=== PATIENT | male | born 1945 | race Caucasian/White ===

== ENCOUNTER 2017-09-08 14:41 | Emergency (ER) | payer MEDICARE, MEDICAID ==
[~2017-09-08] VITALS: Ht 180.3 cm; Wt 99.8 kg
[~2017-09-08 14:41] MED LIST: ASPI-991 PO; ATOR20TA PO; CLON0.5T4 PO; CLOP75TA2 PO; DOCU-25 PO; DUTA0.5C PO; ERGO500047 PO; MECL-102 PO; MELO-270 PO; METO25TA6 PO; PIOG30TA2 PO; SITA1TAB6 PO; TAMS-12 PO; TOLT4CAP PO
[2017-09-08 15:41] VITALS: BP 142/72
== END 2017-09-08 17:00 | disposition home or self-care (01) ==
LOC: ER 14:43
DX: J02.9 Acute pharyngitis, unspecified (principal); K59.00 Constipation, unspecified; I10 Essential (primary) hypertension; J45.909 Unspecified asthma, uncomplicated; E11.9 Type 2 diabetes mellitus without complications; F17.200 Nicotine dependence, unspecified, uncomplicated; Z86.73 Personal history of transient ischemic attack (TIA), and cerebral infarction without residual deficits; Z79.82 Long term (current) use of aspirin
CPT/HCPCS: 99283; A4606; Z7610

== ENCOUNTER 2018-03-27 10:36 | Outpatient (CLI) | payer MEDICARE, MEDICAID ==
[~2018-03-27 10:36] MED LIST changes: +ASPI-1152 PO; -ASPI-991 PO; +CLOP75TA15 PO; -CLOP75TA2 PO; +DOCU-141 PO; -DOCU-25 PO; +ERGO500040 PO; -ERGO500047 PO; +MELO-105 PO; -MELO-270 PO; +PIOG30TA10 PO; -PIOG30TA2 PO
[2018-03-27] MEDS ORDERED: IOHEXOL-300 100 ML VIAL IV ONE (11:06)
[2018-03-27] MEDS ORDERED: CT SWABBABLE VALVE TRANS SET 1 EA INFUS.SET MC ONE (11:06)
[2018-03-27] MEDS ORDERED: IV NS 0.9% 250 ML IV ONE (11:06)
== END 2018-03-27 23:59 | disposition home or self-care (01) ==
LOC: CT 10:36
PROVIDERS: ATTEND Internal Medicine Hematology & Oncology
DX: I25.10 Atherosclerotic heart disease of native coronary artery without angina pectoris (principal); I71.4 Abdominal aortic aneurysm, without rupture; I70.0 Atherosclerosis of aorta; I51.7 Cardiomegaly; N28.1 Cyst of kidney, acquired
CPT/HCPCS: 74178; J7050; Q9967

== ENCOUNTER 2018-04-29 20:02 | Inpatient (IN) | payer MEDICARE, MEDICAID ==
[~2018-04-29] VITALS: Ht 180.3 cm; Wt 110.7 kg
[~2018-04-29 20:02] MED LIST changes: +CLON0.5T12 PO; -CLON0.5T4 PO
[2018-04-29 21:01] LABS: BASOPHILS % (AUTO) 0.3 % (0.0-2.0); HEMATOCRIT 39 % (39-51); HEMOGLOBIN 12.4 g/dL (13.5-17.5); LYMPHOCYTES # (AUTO) 2.2 /CMM (0.8-4.8); LYMPHOCYTES % (AUTO) 18.9 % (20.0-44.0); MEAN CORPUSCULAR HEMOGLOBIN 28 PG (26.0-33.0); MEAN CORPUSCULAR HGB CONC 32 g/dl (31.0-36.0); MEAN CORPUSCULAR VOLUME 87 fL (80-96); MONOCYTES # (AUTO) 0.8 /CMM (0.1-1.30); MONOCYTES % (AUTO) 6.6 % (2.0-12.0); NEUTROPHILS # (AUTO) 8.2 /CMM (1.8-8.9); NEUTROPHILS % (AUTO) 72.2 % (43.0-81.0); PLATELET COUNT (AUTO) 314 /CMM (150-450); RDW COEFFICIENT OF VARIATION 15.8 (11.5-15.0); RED BLOOD CELL COUNT(AUTO) 4.49 MIL/uL (4.5-6.0); WHITE BLOOD COUNT (AUTO) 11.4 K/uL (4.3-11.0)
[2018-04-29 21:03] LABS: APPEARANCE,URINE Clear (CLEAR); BILIRUBIN,URINE Negative (NEGATIVE); BLOOD, URINE Trace-intact Ery/uL (NEGATIVE); COLOR,URINE Yellow (YELLOW); KETONES,URINE Trace (NEGATIVE); LEUKOCYTE ESTERASE ,URINE Negative (NEGATIVE); NITRITE, URINE Negative (NEGATIVE); PH,URINE 5.5 (5.0-8.0); PROTEIN,URINE Negative (NEGATIVE); UGLUCOSE Negative (NEGATIVE); UROBILINOGEN,URINE 0.2 EU/dL (0.2)
[2018-04-29 21:11] LABS: CALCIUM, SERUM 8.3 mg/dL (8.5-10.1); CARBON DIOXIDE 28 mmol/L (21-32); CHLORIDE 106 mmol/L (98-107); CREATININE 1.5 mg/dL (0.6-1.3); GLUCOSE 198 mg/dL (74-106); POTASSIUM 4.7 mmol/L (3.5-5.1); SODIUM SERUM 142 mmol/L (136-145); UREA NITROGEN, BLOOD 24 mg/dL (7-18)
[2018-04-29 21:14] LABS: BACTERIA,URINE Rare /HPF (None Seen); RBC,URINE 2-3/HPF /HPF (0-2); SQUAMOUS EPITHELIAL CELL,UR Few /HPF (None Seen); WBC,URINE 0-2 /HPF (0-3)
[2018-04-29 21:15] LABS: MUCUS,URINE Few /LPF (None Seen); URINE AMORPHOUS URATE Few /HPF (None Seen)
[2018-04-29 21:17] LABS: ALANINE AMINOTRANSFERASE 20 U/L (12-78); ALBUMIN 3.5 g/dL (3.4-5.0); ALCOHOL, BLOOD 4 mg/dL (0-0); ALKALINE PHOSPHATASE 96 U/L (46-116); ASPARTATE AMINOTRANSFERASE 13 U/L (15-37); BILIRUBIN,DIRECT 0.1 mg/dL (0.0-0.2); BILIRUBIN,TOTAL 0.3 mg/dL (0.2-1.0); TOTAL PROTEIN, SERUM 7.5 g/dL (6.4-8.2)
[2018-04-29 21:46] LABS: ACETAMINOPHEN 0 ug/ml (10-30)
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
--- NOTE | 2018-04-29 23:05 | NUR ---
PT IS ASSIGNED TO GPS BED 211-B, DX: PSYCHOSIS NOS, AND ACCEPTING PSYCHIATRIST: DR KING
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
[2018-04-30] VITALS: BP 125/76
[2018-04-30] MEDS ORDERED: ACETAMINOPHEN 325 MG TABLET PO PRN (00:30)
[2018-04-30] MEDS ORDERED: MAGNESIUM HYDROXIDE 30 ML UDC PO PRN (00:30)
[2018-04-30] MEDS ORDERED: TEMAZEPAM 7.5 MG CAPSULE PO PRN (00:30)
[2018-04-30] MEDS ORDERED: MAG HYDROX/AL HYDROX/SIMETH 30 ML UDC PO PRN (00:30)
[2018-04-30] MEDS: LORAZEPAM 0.5 MG TABLET PO PRN ×2 (00:47→21:46)
--- NOTE | 2018-04-30 00:47 | NUR ---
GPS-RN PATIENT C/O FEELING ANXIOUS. VSS. ADMINISTERED ATIVAN 0.5MG PO ORDERED PER PATIENT REQUEST. WILL CONTINUE TO MONITOR Q15MIN ROUNDS FOR SAFETY AND BEHAVIOR.
[2018-04-30 07:53] LABS: CREATININE 1.1 mg/dL (0.6-1.3)
[2018-04-30 08:49] VITALS: BP 122/57
--- NOTE | 2018-04-30 09:28 | NUR ---
RN-CO: Notified Ashok Allen JAILER CHIEF to reconcile pt's home medications.
--- NOTE | 2018-04-30 11:00 | NUR ---
[id number]: NOTIFIED DR. VEE ABOUT MEDICATION RECONCILIATION NEEDS TO BE DONE.
--- NOTE | 2018-04-30 15:33 | NUR ---
Initial Discharge Plan: Pt currently resides by himself at [address] [place] [address], [address], [place] [address]; ([phone]). Per pt, he would like to return there. SW will work with the MD and the pt regarding appropriate discharge planning. SW will form a safe and proper discharge.
--- NOTE | 2018-04-30 15:39 | NUR ---
JAVIER called the pt's sister, Zarina Trejo ([phone]), and informed her of the initial discharge plan. She stated that she would like to know when the psychiatrist decides on a discharge date.
[2018-04-30 16:00] VITALS: BP 110/62
[2018-04-30] MEDS ORDERED: MECLIZINE HCL 25 MG TABLET PO PRN (18:00)
[2018-04-30] MEDS ORDERED: TOLTERODINE 2 MG CAP.SR PO SCH (18:30)
[2018-04-30] MEDS ORDERED: DEXTROSE 50%-WATER 50 ML DISP.SYRIN IV PRN (19:30)
[2018-04-30 20:00] VITALS: BP 136/75
[2018-04-30] MEDS: TAMSULOSIN 0.4 MG CAP.SR.24H PO SCH (21:45)
[2018-04-30] MEDS: DUTASTERIDE (0.5 MG) 0.5 MG CAPSULE PO SCH (21:45)
[2018-04-30] MEDS: BLOOD SUGAR DIAGNOSTIC 1 EACH STRIP IN SCH (21:46)
[2018-04-30] MEDS ORDERED: clonazePAM 0.5 MG TABLET PO SCH (22:00)
[2018-05-01 08:00] VITALS: BP 128/65
[2018-05-01] MEDS: BLOOD SUGAR DIAGNOSTIC 1 EACH STRIP IN SCH ×4 (08:07→21:26)
[2018-05-01 08:10] LABS: BASOPHILS % (AUTO) 0.3 % (0.0-2.0); HEMATOCRIT 40 % (39-51); HEMOGLOBIN 12.8 g/dL (13.5-17.5); LYMPHOCYTES # (AUTO) 2.4 /CMM (0.8-4.8); LYMPHOCYTES % (AUTO) 23.2 % (20.0-44.0); MEAN CORPUSCULAR HEMOGLOBIN 29 PG (26.0-33.0); MEAN CORPUSCULAR HGB CONC 32 g/dl (31.0-36.0); MEAN CORPUSCULAR VOLUME 89 fL (80-96); MONOCYTES # (AUTO) 0.8 /CMM (0.1-1.30); MONOCYTES % (AUTO) 7.8 % (2.0-12.0); NEUTROPHILS # (AUTO) 6.8 /CMM (1.8-8.9); NEUTROPHILS % (AUTO) 66.7 % (43.0-81.0); PLATELET COUNT (AUTO) 288 /CMM (150-450); RDW COEFFICIENT OF VARIATION 17.2 (11.5-15.0); RED BLOOD CELL COUNT(AUTO) 4.44 MIL/uL (4.5-6.0); WHITE BLOOD COUNT (AUTO) 10.2 K/uL (4.3-11.0)
--- NOTE | 2018-05-01 08:19 | NUR ---
RN NOTE: FRANCIS 238. PATIENT DENIES INSULIN. STATES ITS HIGH BECAUSE I JUST ATE. OFFERED COVERAGE 3X.
[2018-05-01] MEDS: DOCUSATE SODIUM 100 MG CAPSULE PO SCH ×2 (09:01→17:04)
[2018-05-01] MEDS: ATORVASTATIN 10 MG TABLET PO SCH (09:01)
[2018-05-01] MEDS: clonazePAM 0.5 MG TABLET PO SCH ×2 (09:01→17:04)
[2018-05-01] MEDS: CLOPIDOGREL BISULFATE 75 MG TABLET PO SCH (09:02)
[2018-05-01] MEDS: risperiDONE 1 MG TABLET PO SCH ×2 (09:02→17:04)
[2018-05-01] MEDS: METFORMIN 500 MG TABLET PO SCH ×2 (09:02→17:04)
[2018-05-01] MEDS: PIOGLITAZONE HCL 15 MG TABLET PO SCH (09:02)
[2018-05-01] MEDS: TOLTERODINE 2 MG CAP.SR PO SCH (09:02)
[2018-05-01] MEDS: MELOXICAM 7.5 MG TABLET PO SCH (09:02)
[2018-05-01] MEDS: METOPROLOL TARTRATE 25 MG TABLET PO SCH ×2 (09:03→17:04)
[2018-05-01] MEDS: ASPIRIN EC 81 MG TABLET.DR PO SCH (09:03)
[2018-05-01 09:50] LABS: CHOLESTEROL 170 mg/dL (<200); HDL CHOLESTEROL 52 mg/dL (40-60); LDL 92 mg/dL (0-99); TRIGLYCERIDES 183 mg/dL (30-150)
--- NOTE | 2018-05-01 12:30 | NUR ---
RN NOTE: BLOOD SUGAR 154. PATIENT REFUSED COVERAGE. OFFERED 3X.
[2018-05-01 16:00] VITALS: BP 119/78
[2018-05-01] MEDS: NYSTATIN TOP POWDER 15 GM BOTTLE TP SCH (17:26)
[2018-05-01 20:02] VITALS: BP 126/67
[2018-05-01] MEDS: TAMSULOSIN 0.4 MG CAP.SR.24H PO SCH (21:26)
[2018-05-01] MEDS: LORAZEPAM 0.5 MG TABLET PO PRN (21:26)
[2018-05-01] MEDS: DUTASTERIDE (0.5 MG) 0.5 MG CAPSULE PO SCH (21:26)
[2018-05-01] MEDS: INSULIN REGULAR, HUMAN 100 UNIT/ML 3 ML VIAL SQ PRN (21:27)
[2018-05-02 07:54] LABS: BASOPHILS % (AUTO) 0.3 % (0.0-2.0); EOSINOPHILS % (AUTO) 1.8 % (0.0-6.0); HEMATOCRIT 37 % (39-51); LYMPHOCYTES # (AUTO) 2.3 /CMM (0.8-4.8); LYMPHOCYTES % (AUTO) 23.4 % (20.0-44.0); MEAN CORPUSCULAR HEMOGLOBIN 29 PG (26.0-33.0); MEAN CORPUSCULAR HGB CONC 32 g/dl (31.0-36.0); MEAN CORPUSCULAR VOLUME 89 fL (80-96); NEUTROPHILS # (AUTO) 6.3 /CMM (1.8-8.9); NEUTROPHILS % (AUTO) 64.5 % (43.0-81.0); PLATELET COUNT (AUTO) 271 /CMM (150-450); RDW COEFFICIENT OF VARIATION 16.4 (11.5-15.0); RED BLOOD CELL COUNT(AUTO) 4.19 MIL/uL (4.5-6.0); WHITE BLOOD COUNT (AUTO) 9.8 K/uL (4.3-11.0)
[2018-05-02 08:00] VITALS: BP 110/58
[2018-05-02] MEDS: BLOOD SUGAR DIAGNOSTIC 1 EACH STRIP IN SCH ×4 (09:00→21:46)
[2018-05-02] MEDS: risperiDONE 1 MG TABLET PO SCH ×2 (09:01→17:32)
[2018-05-02] MEDS: CLOPIDOGREL BISULFATE 75 MG TABLET PO SCH (09:01)
[2018-05-02] MEDS: DOCUSATE SODIUM 100 MG CAPSULE PO SCH ×2 (09:01→17:35)
[2018-05-02] MEDS: METOPROLOL TARTRATE 25 MG TABLET PO SCH ×2 (09:01→17:35)
[2018-05-02] MEDS: ATORVASTATIN 10 MG TABLET PO SCH (09:02)
[2018-05-02] MEDS: MELOXICAM 7.5 MG TABLET PO SCH (09:02)
[2018-05-02] MEDS: PIOGLITAZONE HCL 15 MG TABLET PO SCH (09:02)
[2018-05-02] MEDS: ASPIRIN EC 81 MG TABLET.DR PO SCH (09:02)
[2018-05-02] MEDS: TOLTERODINE 2 MG CAP.SR PO SCH (09:02)
[2018-05-02] MEDS: METFORMIN 500 MG TABLET PO SCH ×2 (09:02→17:32)
[2018-05-02] MEDS: clonazePAM 0.5 MG TABLET PO SCH ×2 (09:02→17:32)
[2018-05-02] MEDS: NYSTATIN TOP POWDER 15 GM BOTTLE TP SCH ×2 (09:03→17:29)
--- NOTE | 2018-05-02 09:07 | NUR ---
GPS/RN ACCUCHECK WITH BLOOD SUGAR 171. PATIENT REFUSED INSULIN COVERAGE. OFFERED X 3.
[2018-05-02] MEDS: FAMOTIDINE (20 MG) 20 MG TABLET PO SCH ×2 (09:12→17:32)
--- NOTE | 2018-05-02 12:53 | NUR ---
GPS/RN ACCUCHECK DONE FOR 1200. PATIENT REFUSED INSULIN COVERAGE. OFFERED X 3.
[2018-05-02 15:57] VITALS: BP 112/72
[2018-05-02 20:00] VITALS: BP 133/72
[2018-05-02] MEDS: LORAZEPAM 0.5 MG TABLET PO PRN (21:40)
[2018-05-02] MEDS: DUTASTERIDE (0.5 MG) 0.5 MG CAPSULE PO SCH (21:40)
[2018-05-02] MEDS: TAMSULOSIN 0.4 MG CAP.SR.24H PO SCH (21:40)
[2018-05-02] MEDS: INSULIN REGULAR, HUMAN 100 UNIT/ML 3 ML VIAL SQ PRN (21:48)
--- NOTE | 2018-05-03 07:26 | NUR ---
[id number]: BLOOD SUGAR IS 113 MG/DL AND NO INSULIN REQUIRED AT THIS TIME
[2018-05-03 08:00] VITALS: BP 110/62
[2018-05-03] MEDS: clonazePAM 0.5 MG TABLET PO SCH ×2 (08:04→16:35)
[2018-05-03] MEDS: METFORMIN 500 MG TABLET PO SCH ×2 (08:04→16:35)
[2018-05-03] MEDS: FAMOTIDINE (20 MG) 20 MG TABLET PO SCH ×2 (08:05→16:35)
[2018-05-03] MEDS: DOCUSATE SODIUM 100 MG CAPSULE PO SCH ×2 (08:05→16:36)
[2018-05-03] MEDS: ASPIRIN EC 81 MG TABLET.DR PO SCH (08:05)
[2018-05-03] MEDS: MELOXICAM 7.5 MG TABLET PO SCH (08:05)
[2018-05-03] MEDS: TOLTERODINE 2 MG CAP.SR PO SCH (08:05)
[2018-05-03] MEDS: risperiDONE 1 MG TABLET PO SCH ×2 (08:05→16:35)
[2018-05-03] MEDS: PIOGLITAZONE HCL 15 MG TABLET PO SCH (08:06)
[2018-05-03] MEDS: METOPROLOL TARTRATE 25 MG TABLET PO SCH ×2 (08:06→16:36)
[2018-05-03] MEDS: CLOPIDOGREL BISULFATE 75 MG TABLET PO SCH (08:07)
[2018-05-03] MEDS: ATORVASTATIN 10 MG TABLET PO SCH (08:07)
[2018-05-03] MEDS: BLOOD SUGAR DIAGNOSTIC 1 EACH STRIP IN SCH ×4 (08:08→22:18)
[2018-05-03] MEDS: NYSTATIN TOP POWDER 15 GM BOTTLE TP SCH ×2 (08:08→16:39)
[2018-05-03 08:53] LABS: BASOPHILS % (AUTO) 0.2 % (0.0-2.0); HEMATOCRIT 37 % (39-51); LYMPHOCYTES # (AUTO) 1.8 /CMM (0.8-4.8); LYMPHOCYTES % (AUTO) 17.6 % (20.0-44.0); MEAN CORPUSCULAR HEMOGLOBIN 29 PG (26.0-33.0); MEAN CORPUSCULAR HGB CONC 33 g/dl (31.0-36.0); MEAN CORPUSCULAR VOLUME 89 fL (80-96); MONOCYTES # (AUTO) 0.8 /CMM (0.1-1.30); MONOCYTES % (AUTO) 8.4 % (2.0-12.0); NEUTROPHILS # (AUTO) 7.3 /CMM (1.8-8.9); NEUTROPHILS % (AUTO) 71.8 % (43.0-81.0); PLATELET COUNT (AUTO) 260 /CMM (150-450); RDW COEFFICIENT OF VARIATION 17.4 (11.5-15.0); RED BLOOD CELL COUNT(AUTO) 4.13 MIL/uL (4.5-6.0); WHITE BLOOD COUNT (AUTO) 10.1 K/uL (4.3-11.0)
--- NOTE | 2018-05-03 11:52 | NUR ---
[id number]: BLOOD SUGAR IS 116 MG/DL AND NO INSULIN REQUIRED AT THIS TIME
[2018-05-03 16:08] VITALS: BP 117/63
[2018-05-03] MEDS: INSULIN REGULAR, HUMAN 100 UNIT/ML 3 ML VIAL SQ PRN ×2 (18:00→22:17)
--- NOTE | 2018-05-03 18:00 | NUR ---
[id number]: BLOOD SUGAR IS 141 MG/DL AND GAVE 2 UNITS OF REGULAR INSULIN REQUIRED AT THIS TIME
[2018-05-03 19:58] VITALS: BP 95/46
[2018-05-03] MEDS: DUTASTERIDE (0.5 MG) 0.5 MG CAPSULE PO SCH (21:16)
[2018-05-03] MEDS: TAMSULOSIN 0.4 MG CAP.SR.24H PO SCH (21:16)
[2018-05-03 23:00] VITALS: BP 107/62
[2018-05-04 07:02] LABS: BASOPHILS % (AUTO) 0.2 % (0.0-2.0); EOSINOPHILS % (AUTO) 1.7 % (0.0-6.0); HEMATOCRIT 37 % (39-51); LYMPHOCYTES # (AUTO) 2.3 /CMM (0.8-4.8); MEAN CORPUSCULAR HEMOGLOBIN 29 PG (26.0-33.0); MEAN CORPUSCULAR HGB CONC 32 g/dl (31.0-36.0); MEAN CORPUSCULAR VOLUME 89 fL (80-96); MONOCYTES # (AUTO) 1.1 /CMM (0.1-1.30); MONOCYTES % (AUTO) 10.5 % (2.0-12.0); NEUTROPHILS # (AUTO) 6.5 /CMM (1.8-8.9); NEUTROPHILS % (AUTO) 64.6 % (43.0-81.0); PLATELET COUNT (AUTO) 265 /CMM (150-450); RDW COEFFICIENT OF VARIATION 16.7 (11.5-15.0); RED BLOOD CELL COUNT(AUTO) 4.18 MIL/uL (4.5-6.0); WHITE BLOOD COUNT (AUTO) 10.1 K/uL (4.3-11.0)
[2018-05-04 08:00] VITALS: BP 104/59
[2018-05-04] MEDS: DOCUSATE SODIUM 100 MG CAPSULE PO SCH ×2 (08:20→17:18)
[2018-05-04] MEDS: PIOGLITAZONE HCL 15 MG TABLET PO SCH (08:20)
[2018-05-04] MEDS: BLOOD SUGAR DIAGNOSTIC 1 EACH STRIP IN SCH ×5 (08:20→21:59)
[2018-05-04] MEDS: ASPIRIN EC 81 MG TABLET.DR PO SCH (08:20)
[2018-05-04] MEDS: clonazePAM 0.5 MG TABLET PO SCH ×2 (08:21→17:31)
[2018-05-04] MEDS: TOLTERODINE 2 MG CAP.SR PO SCH (08:21)
[2018-05-04] MEDS: FAMOTIDINE (20 MG) 20 MG TABLET PO SCH ×2 (08:22→17:18)
[2018-05-04] MEDS: ATORVASTATIN 10 MG TABLET PO SCH (08:22)
[2018-05-04] MEDS: CLOPIDOGREL BISULFATE 75 MG TABLET PO SCH (08:22)
[2018-05-04] MEDS: risperiDONE 1 MG TABLET PO SCH ×2 (08:22→17:18)
[2018-05-04] MEDS: METFORMIN 500 MG TABLET PO SCH ×2 (08:24→17:18)
[2018-05-04] MEDS: INSULIN REGULAR, HUMAN 100 UNIT/ML 3 ML VIAL SQ PRN ×3 (08:29→22:02)
[2018-05-04] MEDS: METOPROLOL TARTRATE 25 MG TABLET PO SCH ×2 (08:33→17:00)
[2018-05-04] MEDS: NYSTATIN TOP POWDER 15 GM BOTTLE TP SCH ×2 (08:34→17:26)
[2018-05-04] MEDS: MELOXICAM 7.5 MG TABLET PO SCH (08:53)
[2018-05-04] MEDS ORDERED: ERGOCALCIFEROL (VITAMIN D 2) 50,000 UNIT CAPSULE PO SCH (09:00)
--- NOTE | 2018-05-04 11:14 | NUR ---
SW spoke to the pt's sister, Zarina (cell: [phone]) and discussed that the psychiatrist has not decided on a discharge date as of yet and also discussed the pt's progress.
--- NOTE | 2018-05-04 12:30 | NUR ---
[id number]: BLOOD SUGAR IS 141 MG/DL AND GAVE 2 UNITS OF REGULAR INSULIN
[2018-05-04 16:06] VITALS: BP 118/58
--- NOTE | 2018-05-04 19:30 | NUR ---
GPS RN NOTE, RECEIVED PATIENT AWAKE AND IN BED, NO S/S OR COMPLAINTS OF PAIN AT THIS TIME. PATIENT IS DISPLAYING NO S/S OF APPARENT DISTRESS AT THIS TIME. PATIENT BREATHING IS UNLABORED WITH EQUAL RISE AND FALL CHEST. PATIENT IS ALERT AND ORIENTED X 3 ON ROOM AIR WITH A SPO2 97% . PATIENT IS SUSPICIOUS, PARANOID, DISORGANIZED, COOPERATIVE, ANXIOUS AT TIMES, AND NEEDS REDIRECTION. PATIENT DENIES SUICIDE IDEATIONS AND HOMICIDAL IDEATIONS AT THIS TIME. PATIENT EDUCATED ON THE USE OF THE CALL [place]. PATIENT BED SIDE RAILS UP X 2 FOR SAFETY, BED IS LOCKED, LOW, AND I WILL CONTINUE TO MONITOR AND MAINTAIN SAFETY WITH THE HELP OF STAFF.
[2018-05-04 19:45] VITALS: BP 145/71
[2018-05-04] MEDS: TAMSULOSIN 0.4 MG CAP.SR.24H PO SCH (21:46)
[2018-05-04] MEDS: DUTASTERIDE (0.5 MG) 0.5 MG CAPSULE PO SCH (21:46)
--- NOTE | 2018-05-04 21:59 | NUR ---
GPS RN NOTE, PERFORMED ACCU CHECK ON PATIENT WITH A BLOOD SUGAR RESULT OF 151. GAVE 2 UNITS OF REGULAR INSULIN PER SLIDING SCALE. ALSO GAVE SNACK WELL. PATIENT TOLERATED PROCEDURE AND SNACK WELL. WILL CONTINUE TO MONITOR THIS PATIENT.
[2018-05-05 07:38] LABS: BASOPHILS % (AUTO) 0.3 % (0.0-2.0); EOSINOPHILS % (AUTO) 2.2 % (0.0-6.0); HEMATOCRIT 37 % (39-51); HEMOGLOBIN 11.9 g/dL (13.5-17.5); LYMPHOCYTES # (AUTO) 2.5 /CMM (0.8-4.8); LYMPHOCYTES % (AUTO) 26.6 % (20.0-44.0); MEAN CORPUSCULAR HEMOGLOBIN 29 PG (26.0-33.0); MEAN CORPUSCULAR HGB CONC 32 g/dl (31.0-36.0); MEAN CORPUSCULAR VOLUME 90 fL (80-96); MONOCYTES % (AUTO) 10.5 % (2.0-12.0); NEUTROPHILS # (AUTO) 5.7 /CMM (1.8-8.9); NEUTROPHILS % (AUTO) 60.4 % (43.0-81.0); PLATELET COUNT (AUTO) 258 /CMM (150-450); RDW COEFFICIENT OF VARIATION 16.6 (11.5-15.0); RED BLOOD CELL COUNT(AUTO) 4.09 MIL/uL (4.5-6.0); WHITE BLOOD COUNT (AUTO) 9.4 K/uL (4.3-11.0)
--- NOTE | 2018-05-05 07:38 | NUR ---
[id number]: BLOOD SUGAR IS 122 MG/DL AND NO INSULIN COVERAGE REQUIRED AT THIS TIME
[2018-05-05] MEDS: BLOOD SUGAR DIAGNOSTIC 1 EACH STRIP IN SCH ×4 (07:59→21:14)
[2018-05-05] MEDS: METFORMIN 500 MG TABLET PO SCH ×2 (08:00→16:36)
[2018-05-05] MEDS: MELOXICAM 7.5 MG TABLET PO SCH (08:00)
[2018-05-05] MEDS: ATORVASTATIN 10 MG TABLET PO SCH (08:00)
[2018-05-05] MEDS: CLOPIDOGREL BISULFATE 75 MG TABLET PO SCH (08:00)
[2018-05-05] MEDS: DOCUSATE SODIUM 100 MG CAPSULE PO SCH ×2 (08:00→16:36)
[2018-05-05] MEDS: clonazePAM 0.5 MG TABLET PO SCH ×2 (08:00→16:36)
[2018-05-05] MEDS: PIOGLITAZONE HCL 15 MG TABLET PO SCH (08:00)
[2018-05-05] MEDS: FAMOTIDINE (20 MG) 20 MG TABLET PO SCH ×2 (08:00→16:37)
[2018-05-05] MEDS: ASPIRIN EC 81 MG TABLET.DR PO SCH (08:00)
[2018-05-05] MEDS: TOLTERODINE 2 MG CAP.SR PO SCH (08:01)
[2018-05-05] MEDS: risperiDONE 1 MG TABLET PO SCH ×2 (08:01→16:37)
[2018-05-05] MEDS: METOPROLOL TARTRATE 25 MG TABLET PO SCH ×2 (08:02→16:36)
[2018-05-05] MEDS: NYSTATIN TOP POWDER 15 GM BOTTLE TP SCH ×2 (08:03→16:37)
[2018-05-05 08:04] VITALS: BP 110/78
--- NOTE | 2018-05-05 08:29 | NUR ---
[id number]: GAVE BLOOD SUGAR IS 128 MG/DL AND GAVE 2 UNITS OF REGULAR INSULIN Addendum: 05/05/18 at 1211 by RADHA AGUERO RN WRONG TIME, IS FOR 8.6.18 AT 0509
--- NOTE | 2018-05-05 09:00 | NUR ---
[id number]: DR. PONCE CALLED WANTING TO SPEAK WITH DR. GREGORIO. PROVIDE THE PHONE NUMBER OF DR. GREGORIO REGARDING STARTING PT ON CLOZARIL.
--- NOTE | 2018-05-05 11:29 | NUR ---
JAVIER called the pt's sister, Zarina Trejo ([phone]), and informed her that the pt is going to be discharged on Friday back home on her voicemail.
--- NOTE | 2018-05-05 11:59 | NUR ---
[id number]: BLOOD SUGAR IS 121 MG/DL AND NO INSULIN REQUIRED AT THIS TIME
[2018-05-05 16:10] VITALS: BP 132/64
[2018-05-05] MEDS: INSULIN REGULAR, HUMAN 100 UNIT/ML 3 ML VIAL SQ PRN ×2 (16:55→21:52)
--- NOTE | 2018-05-05 16:55 | NUR ---
[id number]: BLOOD SUGAR IS 144 MG/DL AND GAVE 2 UNITS OF REGULAR INSULIN
[2018-05-05 19:38] VITALS: BP 145/81
[2018-05-05] MEDS: DUTASTERIDE (0.5 MG) 0.5 MG CAPSULE PO SCH (21:14)
[2018-05-05] MEDS: TAMSULOSIN 0.4 MG CAP.SR.24H PO SCH (21:14)
[2018-05-06 06:49] LABS: BASOPHILS % (AUTO) 0.3 % (0.0-2.0); EOSINOPHILS % (AUTO) 2.2 % (0.0-6.0); HEMATOCRIT 37 % (39-51); HEMOGLOBIN 11.9 g/dL (13.5-17.5); LYMPHOCYTES # (AUTO) 2.4 /CMM (0.8-4.8); LYMPHOCYTES % (AUTO) 25.7 % (20.0-44.0); MEAN CORPUSCULAR HEMOGLOBIN 29 PG (26.0-33.0); MEAN CORPUSCULAR HGB CONC 33 g/dl (31.0-36.0); MEAN CORPUSCULAR VOLUME 89 fL (80-96); MONOCYTES % (AUTO) 10.6 % (2.0-12.0); NEUTROPHILS # (AUTO) 5.8 /CMM (1.8-8.9); NEUTROPHILS % (AUTO) 61.2 % (43.0-81.0); PLATELET COUNT (AUTO) 248 /CMM (150-450); RDW COEFFICIENT OF VARIATION 17.1 (11.5-15.0); WHITE BLOOD COUNT (AUTO) 9.4 K/uL (4.3-11.0)
[2018-05-06] MEDS: BLOOD SUGAR DIAGNOSTIC 1 EACH STRIP IN SCH ×4 (07:41→22:02)
[2018-05-06 08:00] VITALS: BP 161/89
[2018-05-06] MEDS: clonazePAM 0.5 MG TABLET PO SCH ×2 (08:32→16:42)
[2018-05-06] MEDS: DOCUSATE SODIUM 100 MG CAPSULE PO SCH ×2 (08:32→16:42)
[2018-05-06] MEDS: PIOGLITAZONE HCL 15 MG TABLET PO SCH (08:32)
[2018-05-06] MEDS: MELOXICAM 7.5 MG TABLET PO SCH (08:32)
[2018-05-06] MEDS: CLOPIDOGREL BISULFATE 75 MG TABLET PO SCH (08:33)
[2018-05-06] MEDS: FAMOTIDINE (20 MG) 20 MG TABLET PO SCH ×2 (08:33→16:42)
[2018-05-06] MEDS: TOLTERODINE 2 MG CAP.SR PO SCH (08:33)
[2018-05-06] MEDS: METFORMIN 500 MG TABLET PO SCH ×2 (08:33→16:42)
[2018-05-06] MEDS: ASPIRIN EC 81 MG TABLET.DR PO SCH (08:33)
[2018-05-06] MEDS: ATORVASTATIN 10 MG TABLET PO SCH (08:33)
[2018-05-06] MEDS: METOPROLOL TARTRATE 25 MG TABLET PO SCH ×2 (08:34→16:43)
[2018-05-06] MEDS: NYSTATIN TOP POWDER 15 GM BOTTLE TP SCH ×2 (08:41→16:45)
[2018-05-06] MEDS: CLOZAPINE 25 MG TABLET PO SCH ×2 (08:46→16:42)
--- NOTE | 2018-05-06 11:12 | NUR ---
JAVIER called the pt's sister, Zarina Trejo ([phone]), and spoke to her about the pt being discharged on Friday and informed her about his current medications that he would have to continue taking.
[2018-05-06 16:00] VITALS: BP 121/54
[2018-05-06 19:58] VITALS: BP 101/52
[2018-05-06] MEDS: TAMSULOSIN 0.4 MG CAP.SR.24H PO SCH (21:20)
[2018-05-06] MEDS ORDERED: CLOZAPINE 25 MG TABLET PO SCH (22:00)
[2018-05-06] MEDS: DUTASTERIDE (0.5 MG) 0.5 MG CAPSULE PO SCH (22:02)
[2018-05-06] MEDS: INSULIN REGULAR, HUMAN 100 UNIT/ML 3 ML VIAL SQ PRN (22:03)
--- NOTE | 2018-05-07 03:09 | NUR ---
GPS RN NOTES PT. REFUSED ACCU CHECK ,EXPLAINED RISKS AND BENEFITS , ENCOURAGED, EXPLAINED RISKS AND BENEFITS STILL REFUSED , WILL CONTINUE TO ENCOURAGED TO COMPLY WITH MD REGIMEN .
[2018-05-07 07:07] LABS: BASOPHILS % (AUTO) 0.3 % (0.0-2.0); EOSINOPHILS % (AUTO) 2.7 % (0.0-6.0); HEMATOCRIT 39 % (39-51); HEMOGLOBIN 12.5 g/dL (13.5-17.5); LYMPHOCYTES # (AUTO) 2.1 /CMM (0.8-4.8); MEAN CORPUSCULAR HEMOGLOBIN 29 PG (26.0-33.0); MEAN CORPUSCULAR HGB CONC 32 g/dl (31.0-36.0); MEAN CORPUSCULAR VOLUME 90 fL (80-96); MONOCYTES # (AUTO) 0.7 /CMM (0.1-1.30); MONOCYTES % (AUTO) 7.9 % (2.0-12.0); NEUTROPHILS # (AUTO) 6.1 /CMM (1.8-8.9); NEUTROPHILS % (AUTO) 66.1 % (43.0-81.0); PLATELET COUNT (AUTO) 241 /CMM (150-450); RDW COEFFICIENT OF VARIATION 16.6 (11.5-15.0); RED BLOOD CELL COUNT(AUTO) 4.36 MIL/uL (4.5-6.0); WHITE BLOOD COUNT (AUTO) 9.2 K/uL (4.3-11.0)
[2018-05-07] MEDS: METFORMIN 500 MG TABLET PO SCH ×2 (08:09→16:37)
[2018-05-07] MEDS: DOCUSATE SODIUM 100 MG CAPSULE PO SCH ×2 (08:09→16:40)
[2018-05-07] MEDS: PIOGLITAZONE HCL 15 MG TABLET PO SCH (08:09)
[2018-05-07] MEDS: FAMOTIDINE (20 MG) 20 MG TABLET PO SCH ×2 (08:09→16:59)
[2018-05-07] MEDS: TOLTERODINE 2 MG CAP.SR PO SCH (08:09)
[2018-05-07] MEDS: ATORVASTATIN 10 MG TABLET PO SCH (08:09)
[2018-05-07] MEDS: MELOXICAM 7.5 MG TABLET PO SCH (08:09)
[2018-05-07] MEDS: CLOPIDOGREL BISULFATE 75 MG TABLET PO SCH (08:09)
[2018-05-07] MEDS: ASPIRIN EC 81 MG TABLET.DR PO SCH (08:09)
[2018-05-07] MEDS: METOPROLOL TARTRATE 25 MG TABLET PO SCH ×2 (08:10→16:38)
[2018-05-07] MEDS: NYSTATIN TOP POWDER 15 GM BOTTLE TP SCH ×2 (08:10→16:55)
[2018-05-07] MEDS: BLOOD SUGAR DIAGNOSTIC 1 EACH STRIP IN SCH ×4 (08:10→21:46)
[2018-05-07 08:23] VITALS: BP 112/61
[2018-05-07] MEDS: clonazePAM 0.5 MG TABLET PO SCH ×2 (08:37→16:37)
--- NOTE | 2018-05-07 11:13 | NUR ---
Zarina UlloaNeil ([phone]), pt's sister, called the SW and discussed transportation for the pt's discharge. She stated that she believes the pt drove himself to the hospital and so the SW is going to talk to the the pt when he wakes up.
--- NOTE | 2018-05-07 15:21 | NUR ---
SW met with the pt's primary physician, Dr. Leary ([phone]) and discussed providing the pt with home health upon discharge.
--- NOTE | 2018-05-07 15:22 | NUR ---
JAVIER called A to [facility] health ([phone]) and faxed a referral to fax: [phone].
[2018-05-07 16:00] VITALS: BP 133/72
[2018-05-07 20:00] VITALS: BP 110/56
[2018-05-07] MEDS: TAMSULOSIN 0.4 MG CAP.SR.24H PO SCH (21:46)
[2018-05-07] MEDS: DUTASTERIDE (0.5 MG) 0.5 MG CAPSULE PO SCH (21:46)
[2018-05-08 07:09] LABS: BASOPHILS % (AUTO) 0.4 % (0.0-2.0); EOSINOPHILS % (AUTO) 2.6 % (0.0-6.0); HEMATOCRIT 36 % (39-51); HEMOGLOBIN 11.9 g/dL (13.5-17.5); LYMPHOCYTES # (AUTO) 2.6 /CMM (0.8-4.8); LYMPHOCYTES % (AUTO) 27.5 % (20.0-44.0); MEAN CORPUSCULAR HEMOGLOBIN 29 PG (26.0-33.0); MEAN CORPUSCULAR HGB CONC 33 g/dl (31.0-36.0); MEAN CORPUSCULAR VOLUME 89 fL (80-96); MONOCYTES % (AUTO) 10.6 % (2.0-12.0); NEUTROPHILS # (AUTO) 5.5 /CMM (1.8-8.9); NEUTROPHILS % (AUTO) 58.9 % (43.0-81.0); PLATELET COUNT (AUTO) 267 /CMM (150-450); RDW COEFFICIENT OF VARIATION 16.7 (11.5-15.0); WHITE BLOOD COUNT (AUTO) 9.3 K/uL (4.3-11.0)
[2018-05-08] MEDS: BLOOD SUGAR DIAGNOSTIC 1 EACH STRIP IN SCH ×2 (07:35→12:05)
[2018-05-08 08:00] VITALS: BP 107/59
[2018-05-08] MEDS: PIOGLITAZONE HCL 15 MG TABLET PO SCH (08:59)
[2018-05-08] MEDS: clonazePAM 0.5 MG TABLET PO SCH (08:59)
[2018-05-08] MEDS: ASPIRIN EC 81 MG TABLET.DR PO SCH (09:00)
[2018-05-08] MEDS: MELOXICAM 7.5 MG TABLET PO SCH (09:00)
[2018-05-08] MEDS: FAMOTIDINE (20 MG) 20 MG TABLET PO SCH (09:00)
[2018-05-08] MEDS: TOLTERODINE 2 MG CAP.SR PO SCH (09:00)
[2018-05-08] MEDS: DOCUSATE SODIUM 100 MG CAPSULE PO SCH (09:00)
[2018-05-08] MEDS: CLOPIDOGREL BISULFATE 75 MG TABLET PO SCH (09:00)
[2018-05-08 09:01] VITALS: BP 107/59
[2018-05-08] MEDS: METOPROLOL TARTRATE 25 MG TABLET PO SCH (09:01)
[2018-05-08] MEDS: NYSTATIN TOP POWDER 15 GM BOTTLE TP SCH (09:01)
[2018-05-08] MEDS: METFORMIN 500 MG TABLET PO SCH (09:01)
--- NOTE | 2018-05-08 09:26 | NUR ---
DR. KING GAVE AN ORDER TO D/C HOLD AND D/C HOME AND TO FOLLOW UP WITH PSYCH AND MEDICAL DOCTORS.
[2018-05-08] MEDS: ATORVASTATIN 10 MG TABLET PO SCH (09:58)
--- NOTE | 2018-05-08 13:56 | NUR ---
Discharge Note: Pt was discharged home to [address] [place] [address], [address], [place] [address]; ([phone]). Pt was advised to be transported via taxi for $10 but once the taxi arrived the pt refused the transport and drove his own vehicle home. Pts sister, Zarina Trejo ([phone]), is aware of this discharge and has agreed. Pt was set up with A to [facility] and has an appointment with his primary care physician, Dr. Leary, on 06/12/18 at 2pm. Upon discharge, the pt appeared to in a euthymic mood and had a calm affect. Pt denied both suicidal and homicidal ideation as well as both auditory and visual hallucinations. Pt will be under the care of his psychiatrist, Dr. Austin, located at [address] [place] [address]; and his play reader, Dr. Leary, located at [address] [place] [address] [address] [address]; .
--- NOTE | 2018-05-08 14:00 | NUR ---
RN NOTE: PATIENT LEFT UNIT AT 1400. ESCORTED DOWN BY ERICA. PATIENT GOING HOME VIA TAXI. PATIENT DENIES SI/HI DURING DISCHARGE. MEDICALLY STABLE. [facility] DISCHARGE HOLD, D/C ORDER, AND GAVE PRESCRIPTION. FIRE SAFETY MANAGER MADE AWARE AND GAVE PRESCRIPTIONS. EXIT CARE PAPERS SIGNED. BELONGINGS AND VALUABLES GAVE TO PATIENT AND SIGNED FOR. PATIENT REFUSED SKIN ASSESSMENT.
--- NOTE | 2018-05-08 14:09 | NUR ---
RN NOTE: ACCORDING TO ERICA BAUTISTA, PATIENT DID NOT TAKE THE TAXI HOME. PATIENT WAS ADVISED TO TAKE THE TAXI HOME, BUT PATIENT REFUSED AND WANTED TO DRIVE HOME. CAR WAS PARKED IN THE PARKING LOT.
--- NOTE | 2018-05-08 14:14 | NUR ---
JAVIER called the pt's sister, Zarina Trejo ([phone]), and informed her that the pt refused the transportation that was set up for him and he decided to take his own vehicle.
== END 2018-05-08 14:00 | disposition home or self-care (01) | DRG 885 ==
LOC: ER 20:03 → GPS 23:42
PROVIDERS: ADMIT Psychiatry & Neurology Psychiatry; ATTEND Nurse Practitioner Acute Care
DX: F20.0 Paranoid schizophrenia (principal); N17.0 Acute kidney failure with tubular necrosis; F29 Unspecified psychosis not due to a substance or known physiological condition; F41.9 Anxiety disorder, unspecified; D63.8 Anemia in other chronic diseases classified elsewhere; D72.829 Elevated white blood cell count, unspecified; E11.9 Type 2 diabetes mellitus without complications; E78.5 Hyperlipidemia, unspecified; Z79.84 Long term (current) use of oral hypoglycemic drugs; Z85.51 Personal history of malignant neoplasm of bladder; Z86.73 Personal history of transient ischemic attack (TIA), and cerebral infarction without residual deficits; I10 Essential (primary) hypertension; J45.909 Unspecified asthma, uncomplicated; M19.90 Unspecified osteoarthritis, unspecified site; R21 Rash and other nonspecific skin eruption
CPT/HCPCS: 36415; 80048-TC; 80061-TC; 80076-TC; 80305; 81000-TC; 82565-TC; 82962-TC; 85025-TC; 87081-TC; A4606; G0480; J1815; J8597; Z7610

== ENCOUNTER 2022-01-08 14:51 | Emergency (ER) | payer MEDICARE, OTHER ==
[~2022-01-08] VITALS: Ht 175.3 cm; Wt 106.6 kg
[~2022-01-08 14:51] MED LIST changes: -ASPI-1152 PO; +ASPI-1420 PO; -CLON0.5T12 PO; +CLON0.5T4 PO; -MECL-102 PO; +MECL-159 PO
--- NOTE | 2022-01-08 15:07 | NUR ---
PATIENT CAME FROM HOME, HE STS HE LIVES ALONE WITH CAREGIVER. C/O DIFFICULTY SWALLOWING PILLS LATELY. WITH THE PATIENT THERE WAS A BUSINESS CARD,FOR [facility], [place] CHANA HICKEY (DINKEY OPERATOR) [phone].
[2022-01-08] MEDS ORDERED: AZIT200S48 PO (16:42)
[2022-01-08] MEDS ORDERED: POLY17PO4 PO (16:42)
--- NOTE | 2022-01-08 17:13 | NUR ---
Patient discharged to home in stable condition. Written and verbal after care instructions given. Patient verbalizes understanding of instruction.
[2022-01-08 17:15] VITALS: BP 173/90
== END 2022-01-08 17:15 | disposition home or self-care (01) ==
LOC: ER 14:54
DX: J18.9 Pneumonia, unspecified organism (principal); R13.10 Dysphagia, unspecified; R05.9 Cough, unspecified; I10 Essential (primary) hypertension; E11.9 Type 2 diabetes mellitus without complications; J45.909 Unspecified asthma, uncomplicated; F17.200 Nicotine dependence, unspecified, uncomplicated; Z98.890 Other specified postprocedural states; Z86.73 Personal history of transient ischemic attack (TIA), and cerebral infarction without residual deficits; Z60.2 Problems related to living alone; Z79.899 Other long term (current) drug therapy; Z79.82 Long term (current) use of aspirin
CPT/HCPCS: 70490-TC; 71045-TC

== ENCOUNTER 2022-08-12 15:28 | Inpatient (IN) | payer MEDICARE, OTHER ==
[~2022-08-12] VITALS: Ht 175.3 cm; Wt 111.1 kg
[~2022-08-12 15:28] MED LIST changes: +AZIT200S48 PO; +POLY17PO4 PO
--- NOTE | 2022-08-12 15:37 | NUR ---
TONI SANTANA C/O FEELING DIZZY AND WEAKNESS TO BILAT KNEES CAUSING HIM TO FALL. PT STATED THAT HE WAS GOING TO THE BANK AND WLAKING UPSTAIR AND HE FELT WEAK AND HAD A GLF, DENGIES ANITA, STATED HE DID HIT HIS HEAD AND HAS A HEADACHE. PT STATED THAT HE HAS BEEN FEELING WEAK THAT PAST COUPLE DAYS AND HAS BEEN HAVING GLF PRIOR TO TODAY. PT IS A&OX3. ATTACHED TO MONITOR. AWAITING MD ORDERS.
--- NOTE | 2022-08-12 16:21 | NUR ---
IV ESTABLISHED R AC 20G. LABS DRAWN AND COLLECTED.
--- NOTE | 2022-08-12 16:31 | NUR ---
COVID TEST COLLECTED AND SENT
--- NOTE | 2022-08-12 16:34 | NUR ---
PT TAKEN TO CT VIA [facility]
--- NOTE | 2022-08-12 16:42 | NUR ---
PT RETURNED FROM [facility] VIA [facility]
[2022-08-12 16:43] LABS: BASOPHILS % (AUTO) 0.1 % (0.0-2.0); EOSINOPHILS % (AUTO) 0.3 % (0.0-6.0); HEMATOCRIT 37 % (39-51); HEMOGLOBIN 12.2 g/dL (13.5-17.5); LYMPHOCYTES # (AUTO) 0.7 K/uL (0.8-4.8); LYMPHOCYTES % (AUTO) 7.3 % (20.0-44.0); MEAN CORPUSCULAR HGB CONC 33 g/dl (31.0-36.0); MEAN CORPUSCULAR VOLUME 95 fL (80-96); MONOCYTES # (AUTO) 1.3 K/uL (0.1-1.30); MONOCYTES % (AUTO) 12.6 % (2.0-12.0); NEUTROPHILS % (AUTO) 79.7 % (43.0-81.0); PLATELET COUNT (AUTO) 223 K/uL (150-450)
[2022-08-12] MEDS ORDERED: [UNRECOGNIZED DRUG - REMARK] (16:53)
[2022-08-12 17:27] LABS: ALANINE AMINOTRANSFERASE 25 U/L (12-78); ALBUMIN 3.3 g/dL (3.4-5.0); ALKALINE PHOSPHATASE 90 U/L (46-116); ASPARTATE AMINOTRANSFERASE 15 U/L (15-37); BILIRUBIN,DIRECT 0.1 mg/dL (0.0-0.2); BILIRUBIN,TOTAL 0.4 mg/dL (0.2-1.0); CALCIUM, SERUM 8.5 mg/dL (8.5-10.1); CARBON DIOXIDE 29 mmol/L (21-32); CHLORIDE 104 mmol/L (98-107); CREATININE 1.5 mg/dL (0.6-1.3); GLUCOSE 151 mg/dL (74-106); POTASSIUM 4.4 mmol/L (3.5-5.1); SODIUM SERUM 138 mmol/L (136-145); TOTAL PROTEIN, SERUM 6.9 g/dL (6.4-8.2); UREA NITROGEN, BLOOD 19 mg/dL (7-18)
--- NOTE | 2022-08-12 18:02 | NUR ---
MOVE SHEET SUBMITTED.
--- NOTE | 2022-08-12 18:53 | NUR ---
URINE COLLECTED AND SENT
[2022-08-12 19:20] LABS: BILIRUBIN,URINE NEGATIVE (NEGATIVE); COLOR,URINE YELLOW (YELLOW); LEUKOCYTE ESTERASE ,URINE NEGATIVE (NEGATIVE); NITRITE, URINE NEGATIVE (NEGATIVE); PROTEIN,URINE NEGATIVE (NEGATIVE); UGLUCOSE NEGATIVE (NEGATIVE); UROBILINOGEN,URINE 0.2 EU/dL (0.2)
--- NOTE | 2022-08-12 19:46 | NUR ---
RECEIVED REPORT FROM AMANDA HOWE . PATIENT CAME WITH CC OF WEAKNESS OF ITALIA LEG THAT CAUSE GLF. PATIENT IS SRI LANKAN SPEAKING. AAO X2-3. WITH IV CANNULA G20 ON RIGHT AC. PATIENT IS ATTACHED TO MONITOR. VITALS CHECKED.
--- NOTE | 2022-08-12 19:46 | NUR ---
Note [email or web address] in EDM - 08/12/22 at 1953 by MICHAEL RECEIVED REPORT FROM AMANDA HOWE . PATIENT CAME WITH CC OF WEAKNESS OF ITALIA LEG THAT CAUSE GLF. PATIENT IS LAO SPEAKING. AAO X2-3. WITH IV CANNULA G20 ON RIGHT AC. PATIENT IS ATTACHED TO MONITOR. VITALS CHECKED.
[2022-08-12 20:21] LABS: WBC,URINE 0-2 /HPF (0-3)
[2022-08-12 20:22] LABS: BACTERIA,URINE None seen /HPF (None Seen); SQUAMOUS EPITHELIAL CELL,UR 0-2 /HPF (None Seen)
--- NOTE | 2022-08-12 21:49 | NUR ---
SEEN BY TRAMAINE STRAUSS AT BEDSIDE
--- NOTE | 2022-08-12 22:00 | NUR ---
REPORT GIVEN TO AMANDA KULKARNI
[2022-08-12 22:30] VITALS: BP 138/73
--- NOTE | 2022-08-12 22:30 | NUR ---
PAINT STOCKMANNISSAN SALES CONSULTANT NOTE RECEIVED REPORT FROM ER NURSE TWILA. PT IS BEING ADMITTED IN ROOM 324-2 FOR SYNCOPE. PT IS A/O X 2-3, EAST TIMORESE SPEAKING, ABLE TO MAKE NEEDS KNOWN. PT IS ORIENTED TO ROOM. PT IS C/O MID BACK PAIN WITH PAIN MEDS IN PLACE. PT HAS SMALL WOUND TO LEFT ELBOW, BRUISES TO LEFT HIP, AND LEFT KNEE, AND REDNESS TO LEFT ANKLE. BUT PT IS REFUSING PICTURES TO BE TAKEN. IV ACCESS TO RIGHT AC 20G, PATENT, AND INTACT. SAFETY MEASURES IN PLACE: CALL LIGHT WITHIN REACH, BED LOCKED, IN LOW POSITION, SR UP X2. WILL CONTINUE TO MONITOR PT.
[2022-08-12] MEDS ORDERED: Z GUARD REMEDY 4 OZ OINT TP PRN (23:30)
[2022-08-12] MEDS ORDERED: ACETAMINOPHEN 325 MG TABLET PO PRN (23:30)
[2022-08-12] MEDS ORDERED: IV NS 0.9% 1,000 ML IV PRN (23:30)
[2022-08-12] MEDS ORDERED: ONDANSETRON HCL/PF 4 MG/2 ML VIAL IVP PRN (23:30)
[2022-08-12] MEDS ORDERED: DEXTROSE 50%-WATER 50 ML DISP.SYRIN IV PRN (23:30)
--- NOTE | 2022-08-13 01:00 | NUR ---
NURSING ASSISTANTS TEACHER NOTE PT HAS MID BACK PAIN, WITH PAIN LEVEL AT 7/10. PAIN MED ADMINISTERED TO PT.
[2022-08-13 06:00] VITALS: BP 120/70
--- NOTE | 2022-08-13 07:15 | NUR ---
HAND STAMPER CLOSING NOTE LEFT PT AWAKE, IN BED. PT IS A/O X 3, PORTUGUESE SPEAKING, ABLE TO MAKE NEEDS KNOWN. NO C/O PAIN, OR DISCOMFORT AT THIS TIME. NO ACUTE DISTRESS NOTED. PT ON TELE MONITOR, SR. ALL NEEDS ATTENDED. SAFETY MEASURES IN PLACE: CALL LIGHT WITHIN REACH, BED LOCKED, IN LOW POSITION, SR UP X2. WILL ENDORSE CARE TO AM SHIFT NURSE FOR SARAH.
--- NOTE | 2022-08-13 07:25 | NUR ---
PEANUT PICKER OPENING NOTE RECEIVED PT AWAKE, IN BED. PT IS A/O X 3, CYMRO SPEAKING AND ICELANDIC , ABLE TO MAKE NEEDS KNOWN. NO C/O PAIN, OR DISCOMFORT AT THIS TIME. NO ACUTE DISTRESS NOTED. PT ON TELE MONITOR, SR. HR OF 88 , ALL NEEDS ATTENDED. SAFETY MEASURES IN PLACE: CALL LIGHT WITHIN REACH, BED LOCKED, IN LOW POSITION, SR UP X2. WILL CONTINUE TO MONITOR
[2022-08-13] MEDS: BLOOD SUGAR DIAGNOSTIC 1 EACH STRIP IN SCH ×4 (07:46→22:02)
--- NOTE | 2022-08-13 07:50 | NUR ---
DIALYSIS PATIENT CARE TECHNICIAN NOTE MED NORCO 5-325 MG WAS ADMINISTERED TO PT AT 0100 D/T BACK PAIN, BUT MED NOT SHOWING IN COMPUTER. PHARMACY, AND NURSE TOBACCO WAREHOUSE AGENT INFORMED ABOUT IT.
[2022-08-13 07:52] LABS: CARBON DIOXIDE 32 mmol/L (21-32); CHLORIDE 106 mmol/L (98-107); CREATININE 1.1 mg/dL (0.6-1.3); GLUCOSE 119 mg/dL (74-106); MAGNESIUM 2.2 mg/dL (1.8-2.4); PHOSPHORUS 3.1 mg/dL (2.5-4.9); POTASSIUM 3.6 mmol/L (3.5-5.1); SODIUM SERUM 141 mmol/L (136-145); UREA NITROGEN, BLOOD 15 mg/dL (7-18)
[2022-08-13 08:00] VITALS: BP 130/67
[2022-08-13] MEDS: PANTOPRAZOLE 40 MG TABLET.DR PO SCH (08:11)
[2022-08-13 08:13] LABS: IRON, SERUM 30 ug/dl (50-175); TOTAL IRON BINDING CAPACITY 268 ug/dl (250-450)
[2022-08-13 08:17] LABS: BASOPHILS % (AUTO) 0.3 % (0.0-2.0); EOSINOPHILS % (AUTO) 0.2 % (0.0-6.0); HEMATOCRIT 35 % (39-51); LYMPHOCYTES # (AUTO) 1.6 K/uL (0.8-4.8); LYMPHOCYTES % (AUTO) 20.4 % (20.0-44.0); MEAN CORPUSCULAR HGB CONC 34 g/dl (31.0-36.0); MEAN CORPUSCULAR VOLUME 93 fL (80-96); MONOCYTES # (AUTO) 1.3 K/uL (0.1-1.30); MONOCYTES % (AUTO) 17.1 % (2.0-12.0); NEUTROPHILS # (AUTO) 4.8 K/uL (1.8-8.9); PLATELET COUNT (AUTO) 229 K/uL (150-450); RED BLOOD CELL COUNT(AUTO) 3.81 MIL/uL (4.5-6.0); WHITE BLOOD COUNT (AUTO) 7.7 K/uL (4.3-11.0)
[2022-08-13 08:31] LABS: CHOLESTEROL 125 mg/dL (<200); HDL CHOLESTEROL 68 mg/dL (40-60); LDL 50 mg/dL (0-99); THYROID STIMULATING HORMONE 0.393 uIU/mL (0.358-3.74); TRIGLYCERIDES 72 mg/dL (30-150)
[2022-08-13] MEDS: HEPARIN SODIUM, PORCINE 5000 UNITS/1 ML VIAL SQ SCH ×2 (09:34→21:53)
[2022-08-13] MEDS: HYDROCODONE/APAP 5/325MG TABLET PO PRN ×2 (09:42→16:51)
[2022-08-13] MEDS: IPRATROPIUM NEB FS 0.5 MG/2.5 ML AMPUL.NEB NEB SCH ×3 (10:46→20:33)
[2022-08-13 11:55] LABS: ABG BASE EXCESS 3.3 mmol/L; ABG OXYGEN SATURATION 90.2 % (92.0-98.5); ABG PCO2 52.8 mmHg (35.0-45.0); ABG PH 7.367 (7.350-7.450); AaDO2 26.5 mmHg; COHb 0.8 % (0.5-1.5); MetHb 0.1 % (0.0-1.5); O2Hb 89.4 % (94.0-97.0); SITE, ABG Right Brachial; VENT MODE, BG room air
[2022-08-13 12:00] VITALS: BP 144/76
[2022-08-13 12:36] LABS: BAND % (MANUAL) 4 % (0.0-5.0); LYMPHOCYTES % (MANUAL) 19 % (16-48); MONOCYTES % (MANUAL) 13 % (0-11.0); NEUTROPHILS % (MANUAL) 64 (42-76)
[2022-08-13] MEDS: INSULIN REGULAR, HUMAN 100 UNIT/ML 3 ML VIAL SQ PRN ×2 (13:09→18:19)
[2022-08-13 16:00] VITALS: BP 147/78
--- NOTE | 2022-08-13 19:08 | NUR ---
MOTION PICTURE PROJECTIONIST APPRENTICE CLOSING NOTE PT AWAKE, IN BED. PT IS A/O X 3, NAMIBIAN SPEAKING AND PASHTO , ABLE TO MAKE NEEDS KNOWN. C/O PAIN, OR DISCOMFORT AND NORCO GIVEN ORDERED , CT OF THE CHEST DONE AND CAROTID ARTERY US WITH NEGATIVE RESULT , NO ACUTE DISTRESS NOTED. PT ON TELE MONITOR, SR. HR OF 88 , IV ACCESS ON THE RAC WITH NS @75 ML PER HOUR , ALL NEEDS ATTENDED. SAFETY MEASURES IN PLACE: CALL LIGHT WITHIN REACH, BED LOCKED, IN LOW POSITION, SR UP X2. WILL CONTINUE TO MONITOR
--- NOTE | 2022-08-13 19:30 | NUR ---
PT RECEIVED AWAKE, RESTING IN BED. PT IS A/O X 3, COMORAN SPEAKING AND ABLE TO SPEAK BRITISH [place] ISLANDER , ABLE TO MAKE NEEDS KNOWN. NO C/O PAIN, OR DISCOMFORT . PT ON TELE MONITOR. IV ACCESS ON THE RAC G#20 INFUSING NS @75 ML/HR, URINAL AT BEDSIDE. SAFETY MEASURES IN PLACE. HOB SLIGHTLY ELEVATED, BED LOCKED IN LOWEST POSITION, SIDE RAILS UP X2, BED ALARM ON, CALL LIGHT WITHIN REACH. WILL CONTINUE PLAN OF CARE.
[2022-08-13 20:00] VITALS: BP 145/84
[2022-08-14] VITALS: BP 156/90
[2022-08-14] MEDS: IPRATROPIUM NEB FS 0.5 MG/2.5 ML AMPUL.NEB NEB SCH ×7 (00:19→23:30)
[2022-08-14 04:00] VITALS: BP 99/75
--- NOTE | 2022-08-14 06:15 | NUR ---
PT ASLEEP, RESTING IN BED. EASILY AWAKEN BY CALLING HIS NAME. PT IS A/O X 3, PERUVIAN SPEAKING AND ABLE TO SPEAK DANISH , ABLE TO MAKE NEEDS KNOWN. NO C/O PAIN, OR DISCOMFORT . PT ON TELE MONITOR. IV ACCESS ON RAC G#20 INFUSING NS @75 ML/HR, URINAL AT BEDSIDE. DUE MEDS GIVEN. NEEDS ATTENDED. SAFETY MEASURES IMAINTAINED. HOB SLIGHTLY ELEVATED, BED LOCKED IN LOWEST POSITION, SIDE RAILS UP X2, BED ALARM ON, CALL LIGHT WITHIN REACH. WILL ENDORSE TO NEXT NURSE ON DUTY FOR CONTINUITY OF CARE.
[2022-08-14 07:06] LABS: CARBON DIOXIDE 30 mmol/L (21-32); CHLORIDE 105 mmol/L (98-107); CREATININE 1.1 mg/dL (0.6-1.3); GLUCOSE 153 mg/dL (74-106); POTASSIUM 3.8 mmol/L (3.5-5.1); SODIUM SERUM 142 mmol/L (136-145); UREA NITROGEN, BLOOD 14 mg/dL (7-18)
[2022-08-14] MEDS: PANTOPRAZOLE 40 MG TABLET.DR PO SCH (07:30)
[2022-08-14 07:37] LABS: BASOPHILS % (AUTO) 0.3 % (0.0-2.0); EOSINOPHILS % (AUTO) 0.4 % (0.0-6.0); HEMATOCRIT 38 % (39-51); HEMOGLOBIN 12.6 g/dL (13.5-17.5); LYMPHOCYTES # (AUTO) 1.4 K/uL (0.8-4.8); LYMPHOCYTES % (AUTO) 15.8 % (20.0-44.0); MEAN CORPUSCULAR HGB CONC 33 g/dl (31.0-36.0); MEAN CORPUSCULAR VOLUME 94 fL (80-96); MONOCYTES % (AUTO) 11.7 % (2.0-12.0); NEUTROPHILS # (AUTO) 6.2 K/uL (1.8-8.9); NEUTROPHILS % (AUTO) 71.8 % (43.0-81.0); PLATELET COUNT (AUTO) 220 K/uL (150-450); RED BLOOD CELL COUNT(AUTO) 4.07 MIL/uL (4.5-6.0); WHITE BLOOD COUNT (AUTO) 8.6 K/uL (4.3-11.0)
[2022-08-14 08:00] VITALS: BP 141/70
[2022-08-14] MEDS: BLOOD SUGAR DIAGNOSTIC 1 EACH STRIP IN SCH ×4 (11:00→21:44)
[2022-08-14 12:00] VITALS: BP 145/71
[2022-08-14] MEDS: INSULIN REGULAR, HUMAN 100 UNIT/ML 3 ML VIAL SQ PRN ×2 (12:45→21:49)
[2022-08-14 16:00] VITALS: BP_SYST 152; BP_SYST 155; BP_DIAS 68; BP_DIAS 76
--- NOTE | 2022-08-14 19:28 | NUR ---
RN CLOSING NOTE PATIENT RECEIVED IN BED AN AWAKE. A/OX3-4 AND ABLE TO VERBALIZE NEEDS. IV ACCESS TO RAC REMAINS INTACT AND PATENT. SALINE LOCKED AT THIS TIME. PATIENT OBSERVED AMBULATING WITH PT ON SHIFT. TOLERATED THERAPY WELL. CONTINENT AND AMBULATING TO BATHROOM WITH ASSISTANCE OF CANE. PATIENT NO LONGER ON TELEMETRY STATUS; STATUS CHANGED TO MED-SURG PER DOCTOR ORDER. BS CHECKS STABLE ON SHIFT @ 212 (4UNITS COVERAGE GIVEN) & 107. SAFETY MEASURES INTACT WITH BED LOW AND LOCKED. CALL LIGHT WITHIN REACH. WILL CONT TO MONITOR
--- NOTE | 2022-08-14 19:30 | NUR ---
MS RN OPENING NOTE RECEIVED PT AWAKE IN BED. A/O X3-4 AND ABLE TO MAKE NEEDS KNOWN. PT STABLE ON ROOM AIR. NO SOB OR S/S OF RESPIRATORY DISTRESS. BREATHING EVEN AND UNLABORED. IV ACCESS RAC 20G, INTACT AND PATENT. SAFETY PRECAUTIONS IN PLACE. BED IN LOWEST LOCKED POSITION, HOB ELEVATED, SIDE RAILS UP X2, AND CALL LIGHT AND TABLE WITHIN REACH. ALL NEEDS MET AT THIS TIME.
[2022-08-14 20:00] VITALS: BP_SYST 144; BP_SYST 148; BP_DIAS 59; BP_DIAS 75
[2022-08-14] MEDS ORDERED: QUETIAPINE FUMARATE 25 MG TABLET PO SCH (22:00)
[2022-08-15] MEDS: IPRATROPIUM NEB FS 0.5 MG/2.5 ML AMPUL.NEB NEB SCH ×4 (00:10→12:17)
[2022-08-15] MEDS: BLOOD SUGAR DIAGNOSTIC 1 EACH STRIP IN SCH (06:30)
--- NOTE | 2022-08-15 06:31 | NUR ---
MS RN CLOSING NOTE PT RESTING IN BED, VERBALLY RESPONSIVE. A/O X3-4 AND ABLE TO MAKE NEEDS KNOWN. PT STABLE ON ROOM AIR. NO SOB OR S/S OF RESPIRATORY DISTRESS. BREATHING EVEN AND UNLABORED. IV ACCESS RAC 20G, INTACT AND PATENT. ALL DUE MEDS GIVEN ORDERED. SAFETY PRECAUTIONS IN PLACE AT ALL TIMES. BED IN LOWEST LOCKED POSITION, HOB ELEVATED, SIDE RAILS UP X2, AND CALL LIGHT AND TABLE WITHIN REACH. ALL NEEDS MET AT THIS TIME AND WILL ENDORSE TO ONCOMING NURSE FOR SARAH.
[2022-08-15] MEDS: PANTOPRAZOLE 40 MG TABLET.DR PO SCH (07:30)
[2022-08-15] MEDS ORDERED: Quetiapine Fumarate PO (08:34)
[2022-08-15] MEDS ORDERED: QUET25TA PO (08:34)
--- NOTE | 2022-08-15 12:25 | NUR ---
SS note: SW met with pt. at bedside for safe discharge planning. The pt. is a 77 year old Micronesian male who was admitted for Syncope, JAMES. Per EMR, the pt. has a syncopal episode. Pt. was seen and cleared by psychiatrist Dr. Wild as pt. presents with some paranoid delusions. Psychiatrist cleared pt. for discharge back home [[address] [facility] [address] [facility] [address]]. The pt. is currently alert & oriented x 4 and makes good eye contact. The pt. appears well-groomed withe euthymic mood & affect. The pt. was compliant with interview and carried a coherent and appropriate conversation. The Pt. is primarily Micronesian speaking and understand/speaks some Sri Lankan. Pt.'s family friend, Mauricio [phone] was at bedside to provide transportation to home. Mauricio also assisted with translating. SW provided pt. with mental health resources as Dr. Wild recommended pt. follow up with outpatient psychiatrist. Pt. stated that he already sees an outpatient psychiatrist, Anne Austin MD [[address], [place] [address]; ]. Noted. Pt. accepted mental health resources and requested clothing. SW provided appropriate clothing and notified nurse. Mental Health /Counseling Services Astrid Smyth [address] [place] [address] Services: Outpatient therapy for children, teens, young adults, adults, older adults, and families; Psychiatric services, medication support [facility] (Behavioral Health) [facility] Walk-in [place] [address] Operation Hours: MON - FRI 8:00 a.m. - 5:00 p.m. Walk In Hours: MON - FRI 8:00 a.m. - 5:00 p.m. Mental Health Services: [facility]able Clinical Services (FCCS) (Medication Support, Mental Health Services, Peer Support NOTE: [facility] Center 21/04 helpline: [address] [place] [address] (Specializes in in-depth psychotherapy for emotional distress: anxiety, depression, interpersonal conflicts, life transitions, childhood abuse) [facility] [place] (Behavioral Health) [address], 2nd [place] [address] Main Number: Adult Full Service Partnership (AFSP): Contact Community [facility] Center [address] [place], [place] [address] (Assist with solving problem marital difficulties, separation & divorce, aging parents, & grief, chronic & terminal illness) [facility] [address] [place] [address] (Deal with loss & grief, anxiety, marital difficulties) Homebound/Mental Health Services [address], [address] [place] [address] (Provide in-home mental services to people who are incapable of leaving their homes) [facility] Senior Service[facility] [address] [place] [address] [facility] [address] [place] [address] PSYCHIATRIC OUTPATIENT SERVICES [facility] Partial Hospitalization and Intensive Outpatient Program (Managed Care and [place] Only) [address] [facility] [address]; [phone] [facility] Partial Hospitalization and Outpatient Program [address] [place] [address]; [phone] [facility] [place] [id number] [place], [place] [phone] [facility] Partial Hospitalization and Outpatient [id number] [place], [place] ; [phone] ;[phone] [facility] PSYCHIATRIC TREATMENT [facility] Children[facility] Crisis stabilization, medication support mental health services [address] [facility] [id number] Appointment needed [facility] [address], [place] [address] [place] Crisis and Hotline Telephone Numbers: 24-Hour service unless stated [place] Mental Health/Crisis Line........[phone] Suicide Prevention Center (24 Hours).......[phone] Suicide Prevention Crisis Center.......[phone] (24 Hours) Alcoholics Anonymous (24 Hours)..........[phone] National Crisis Hotlines: Alcohol and Drug Helpline - Provides referrals to local facilities where adolescents and adults can seek help. Brief intervention. SHAYE Helpline [facility] [place] [facility] 5-473-217-SIGE National Youth Crisis Hotline [facility] Provides free information on specific disorders, referral directory to mental health providers, national directory of local mental health associations (M-F, 9-5 EST) [facility] [place] of Mental Health Information Line: Provides information and literature on mental illness by disorder-for professionals and general public. [facility] Substance Abuse Self-helpline ([facility]) Contact number . Call the hotline and the machine operator hay stacker will screen and link individual to an appropriate program. Must have Medi-lina or be Medi-lina eligible.
--- NOTE | 2022-08-15 12:52 | NUR ---
PIPELINE WELDER NOTE PATIENT DISCHARGED FROM UNIT @ 1240 VIA WHEELCHAIR, HOWEVER ABLE TO AMBULATE TO PRIVATE VEHICLE. ESCORTED BY FAMILY MEMBER BOLIVAR. ALL BELONGINGS AND VALUABLES GIVEN TO PATIENT UPON LEAVE. INVENTORY LIST SIGNED.
== END 2022-08-15 14:00 | disposition home or self-care (01) | DRG 640 ==
LOC: ER 15:30 → TELE 20:50 → MED 08-14 08:27
PROVIDERS: ADMIT Nurse Practitioner Family; ATTEND Internal Medicine
DX: E86.0 Dehydration (principal); N17.0 Acute kidney failure with tubular necrosis; J98.11 Atelectasis; E66.2 Morbid (severe) obesity with alveolar hypoventilation; F20.0 Paranoid schizophrenia; J20.9 Acute bronchitis, unspecified; Z86.73 Personal history of transient ischemic attack (TIA), and cerebral infarction without residual deficits; R29.6 Repeated falls; I25.10 Atherosclerotic heart disease of native coronary artery without angina pectoris; E11.9 Type 2 diabetes mellitus without complications; G47.33 Obstructive sleep apnea (adult) (pediatric); G90.8 Other disorders of autonomic nervous system; F41.9 Anxiety disorder, unspecified; D64.9 Anemia, unspecified; Z68.36 Body mass index [BMI] 36.0-36.9, adult; Z20.822 Contact with and (suspected) exposure to COVID-19; R26.89 Other abnormalities of gait and mobility; Z87.891 Personal history of nicotine dependence
CPT/HCPCS: 36415; 36600; 70450-TC; 71045-TC; 71250-TC; 80048-TC; 80061-TC; 80076-TC; 81001; 82728-TC; 82803-TC; 82962-TC; 83540-TC; 83735-TC; 84100-TC; 84443-TC; 84484-TC; 85025-TC; 85730-TC; 87081-TC; 93307-TC; 93880-TC; 94799-TC; 97110-TC; 97112-TC; 97530-TC; C9803; G0378; J1644; J1815; J7030

== ENCOUNTER 2023-04-09 16:36 | Inpatient (IN) | payer OTHER ==
[~2023-04-09] VITALS: Ht 172.7 cm; Wt 99.8 kg
[~2023-04-09 16:36] MED LIST changes: -ASPI-1420 PO; -ATOR20TA PO; -AZIT200S48 PO; -CLON0.5T4 PO; -CLOP75TA15 PO; -DOCU-141 PO; -DUTA0.5C PO; -ERGO500040 PO; -MECL-159 PO; -MELO-105 PO; -METO25TA6 PO; -PIOG30TA10 PO; -POLY17PO4 PO; +QUET25TA PO; +Quetiapine Fumarate PO; -SITA1TAB6 PO; -TAMS-12 PO; -TOLT4CAP PO; +[UNRECOGNIZED DRUG - REMARK]
[2023-04-09] MEDS ORDERED: IV NS 0.9% 1,000 ML BAG IV ONE ×3 (17:00→20:30)
[2023-04-09 17:52] LABS: BASOPHILS % (AUTO) 0.1 % (0.0-2.0); EOSINOPHILS % (AUTO) 0.5 % (0.0-6.0); HEMATOCRIT 40 % (39-51); HEMOGLOBIN 12.9 g/dL (13.5-17.5); LYMPHOCYTES % (AUTO) 4.9 % (20.0-44.0); MEAN CORPUSCULAR HGB CONC 32 g/dl (31.0-36.0); MEAN CORPUSCULAR VOLUME 96 fL (80-96); MONOCYTES # (AUTO) 1.6 K/uL (0.1-1.30); NEUTROPHILS # (AUTO) 17.1 K/uL (1.8-8.9); NEUTROPHILS % (AUTO) 86.5 % (43.0-81.0); PLATELET COUNT (AUTO) 291 K/uL (150-450); RED BLOOD CELL COUNT(AUTO) 4.15 MIL/uL (4.5-6.0); WHITE BLOOD COUNT (AUTO) 19.8 K/uL (4.3-11.0)
--- NOTE | 2023-04-09 17:55 | NUR ---
pt in bed, blood collected and sent
--- NOTE | 2023-04-09 17:55 | NUR ---
pending urine sample waiting for pt to urinate
[2023-04-09 18:22] LABS: LYMPHOCYTES % (MANUAL) 4 % (16-48); MONOCYTES % (MANUAL) 7 % (0-11.0); MYELOCYTES % 1 % (0-0); NEUTROPHILS % (MANUAL) 88 (42-76)
[2023-04-09 18:42] LABS: ALANINE AMINOTRANSFERASE 17 U/L (12-78); ALBUMIN 3.4 g/dL (3.4-5.0); ALKALINE PHOSPHATASE 76 U/L (46-116); ASPARTATE AMINOTRANSFERASE 20 U/L (15-37); BILIRUBIN,TOTAL 0.5 mg/dL (0.2-1.0); CALCIUM, SERUM 9.4 mg/dL (8.5-10.1); CARBON DIOXIDE 19 mmol/L (21-32); CHLORIDE 103 mmol/L (98-107); CREATININE 1.8 mg/dL (0.6-1.3); GLUCOSE 165 mg/dL (74-106); POTASSIUM 4.5 mmol/L (3.5-5.1); SODIUM SERUM 143 mmol/L (136-145); UREA NITROGEN, BLOOD 37 mg/dL (7-18)
[2023-04-09 18:51] LABS: BILIRUBIN,URINE NEGATIVE (NEGATIVE); COLOR,URINE YELLOW (YELLOW); LEUKOCYTE ESTERASE ,URINE NEGATIVE (NEGATIVE); NITRITE, URINE NEGATIVE (NEGATIVE); PROTEIN,URINE NEGATIVE (NEGATIVE); UGLUCOSE NEGATIVE (NEGATIVE); UROBILINOGEN,URINE 0.2 EU/dL (0.2)
[2023-04-09] MEDS ORDERED: CEFTRIAXONE 1GM BAG (ER ONLY) 50 ML IV ONE ×2 (18:58→19:00)
[2023-04-09 19:02] LABS: BACTERIA,URINE None seen /HPF (None Seen); SQUAMOUS EPITHELIAL CELL,UR None Seen /HPF (None Seen); WBC,URINE 0-2 /HPF (0-3)
--- NOTE | 2023-04-09 19:59 | NUR ---
PATIENT'S BELONGINGS LIST DONE.
--- NOTE | 2023-04-09 21:45 | NUR ---
REPORT GIVEN TO AMANDA UNDERWOOD FOR SARAH
--- NOTE | 2023-04-09 22:12 | NUR ---
PT TRANSPORTED TO UNIT ON [place] WITH EMT AND RN AT BEDSIDE.
--- NOTE | 2023-04-09 22:30 | NUR ---
RN NOTES ADMITTED A 78 Y/O MALE PATIENT VIA GURNEY FROM ER WITH DX OF SEPSIS. PATIENT IS A/O X3 ABLE TO MAKE NEEDS KNOWN, ON RNASAL CANULA AT 4LPM SATING 95% NO SOB NOT ON ANY RESPIRATORY DISTRESS BREATHING EVEN AND UNLABORED. VITAL SIGNS TAKEN AND RECORDED AFEBRILE. SAFELY TRANSFER TO BED. COMPLETE BODY ASSESSMENT DONE, PICTURE TAKEN AND FILED, ALL BELONGINGS ACCOUNTED. HOB ELEVATED. CALL LIGHT WITHIN REACH. BED ALAM IN PLACE. WILL CLOSELY MONITOR THE PATIENT
[2023-04-09 22:33] VITALS: BP 155/83; TEMP 98.8; O2SAT 98
[2023-04-09] MEDS ORDERED: MAG HYDROX/AL HYDROX/SIMETH 30 ML UDC PO PRN (23:00)
[2023-04-09] MEDS ORDERED: ONDANSETRON HCL/PF 4 MG/2 ML VIAL IVP PRN (23:00)
[2023-04-09] MEDS ORDERED: ACETAMINOPHEN 325 MG TABLET PO PRN (23:00)
[2023-04-09] MEDS ORDERED: Z GUARD REMEDY 4 OZ OINT TP PRN (23:00)
[2023-04-09] MEDS ORDERED: ZOLPIDEM TARTRATE 5 MG TABLET PO PRN (23:00)
[2023-04-09] MEDS: IV NS 0.9% 1,000 ML IV PRN (23:31)
[2023-04-10] VITALS: BP 155/83; TEMP 98.8; O2SAT 98
[2023-04-10 04:00] VITALS: BP 149/90; TEMP 98.4; O2SAT 98
--- NOTE | 2023-04-10 06:27 | NUR ---
RN NOTES NO NOTED CHANGES IN PATIENT CONDITION AT THIS TIME; PATIENT VITALS STABLE, NO SIGNS OF ACUTE RESPIRATORY DISTRESS. AM PATIENT CARE RENDERED.WILL CONTINUE TO MONITOR AND REASSESS FOR ANY CHANGES THROUGHOUT THE SHIFT.
[2023-04-10 06:32] LABS: HEMATOCRIT 37 % (39-51); HEMOGLOBIN 12.2 g/dL (13.5-17.5); LYMPHOCYTES # (AUTO) 1.8 K/uL (0.8-4.8); LYMPHOCYTES % (AUTO) 12.3 % (20.0-44.0); MEAN CORPUSCULAR HGB CONC 33 g/dl (31.0-36.0); MEAN CORPUSCULAR VOLUME 94 fL (80-96); MONOCYTES # (AUTO) 1.4 K/uL (0.1-1.30); MONOCYTES % (AUTO) 9.4 % (2.0-12.0); NEUTROPHILS # (AUTO) 11.3 K/uL (1.8-8.9); NEUTROPHILS % (AUTO) 77.3 % (43.0-81.0); PLATELET COUNT (AUTO) 248 K/uL (150-450); RED BLOOD CELL COUNT(AUTO) 3.95 MIL/uL (4.5-6.0); WHITE BLOOD COUNT (AUTO) 14.7 K/uL (4.3-11.0)
[2023-04-10 07:32] LABS: CALCIUM, SERUM 8.5 mg/dL (8.5-10.1); CREATININE 1.1 mg/dL (0.6-1.3); PHOSPHORUS 3.7 mg/dL (2.5-4.9); POTASSIUM 4.1 mmol/L (3.5-5.1)
--- NOTE | 2023-04-10 07:51 | NUR ---
marisa rn note received patient on bed alert, oriented x3, new heplock on the rt ac with good blood return, pt on 2 liters nasal cannula, no sb noted at this time, patient has IV fluids NS 75 ml/hr, pt complains of constipation, called mihai RNNP ok to give milk of magnesia at this time, safely measured implemented, bed alarm, breakfast was taken on his own, call light on, will continue to monitor closely.
[2023-04-10] MEDS: MAGNESIUM HYDROXIDE 30 ML UDC PO PRN (07:55)
[2023-04-10 08:00] VITALS: BP 138/77; TEMP 97.8; O2SAT 98
--- NOTE | 2023-04-10 10:30 | NUR ---
marisa rn note pt eval done, able to use walker to ambulate with min assistance
[2023-04-10 12:00] VITALS: BP 137/74; TEMP 99; O2SAT 94
--- NOTE | 2023-04-10 12:51 | NUR ---
marisa rn note rounds made all needs attended , cont on ivf as ordered .will cont to monitor
--- NOTE | 2023-04-10 15:00 | NUR ---
marisa rn note called renu sister, left a message about home Meds will f\u mihai cabrales garnishment specialist and pharmacist xavier notified
[2023-04-10 16:00] VITALS: BP 157/86; TEMP 100; O2SAT 95
[2023-04-10] MEDS ORDERED: DEXTROSE 50%-WATER 50 ML DISP.SYRIN IV PRN (16:00)
--- NOTE | 2023-04-10 16:50 | NUR ---
marisa rn note t 100.0 Tylenol po mg given will monitor
[2023-04-10] MEDS: IV NS 0.9% 1,000 ML IV PRN (16:52)
[2023-04-10] MEDS: INSULIN REGULAR, HUMAN 100 UNIT/ML 3 ML VIAL SQ PRN ×2 (17:40→22:17)
[2023-04-10] MEDS: BLOOD SUGAR DIAGNOSTIC 1 EACH STRIP IN SCH ×2 (17:41→22:17)
--- NOTE | 2023-04-10 17:41 | NUR ---
satellite television installer not e called to dnp mihai notified that bp 157/86 no new order given at this time
--- NOTE | 2023-04-10 17:45 | NUR ---
TIE PULLER NOTE MID LINE NURSE AT BEDSIDE, PLACED MIDLINE ON LT UPPER ARM ORDERED ,CONT ON IVF ORDERED ATE 100% DINNER SELF
--- NOTE | 2023-04-10 18:43 | NUR ---
VU RN NOTE CALLED SISTER SRI ABOUT HOME MEDS, GAVE SOME BUT DONT REMEMBER ALL, WILL CALL TOMORROW ALSO CALLED TO HIS PHARMACY STATED DONT HAVE MUCH MIRALAX AND AZYTHROMAX AND SEROQUEL BUT NEVER HAVE IT , CALLED HIS DR MCKEON BUT SHE HANG UP ,WILL F\U TOMORROW WITH HIS SISTER, PATIENT ALERT ORIENTED, ON 2L NC NO SOB NOTED AT THIS TIME, ON TELE MONITOR ST 106 , MID LINE ON LT UPPER ARM AND HL ON RT AC INTACT AND FLUSHED WELL , ON IVF ORDERED, BED IN LOWEST AND LOCKED POSITION , WILL CONT TO MONITOR
[2023-04-10] MEDS ORDERED: CEFTRIAXONE 1 G in IV D5W 50 ML IV SCH (19:00)
--- NOTE | 2023-04-10 19:20 | NUR ---
VU RN NOTE PER DNP KB OK TO ORDER CLONAZEPAM 0.5 MG PO QHS WILL F\U ENDORSED NEXT SHIFT ROSARIO RN
--- NOTE | 2023-04-10 19:30 | NUR ---
RN NOTES RECEIVED REPORT FROM MORNING RN. PATIENT IN BED A/O X3 WITH PERIODS. ON 2L NC SATING 97% NO SOB NO DISTRESS BREATHING EVEN AND UNLABORED. WITH PHIL MIDLINE LINE RUNNING NS @ 75 ML/HR. ALL SAFETY MEASURES IN PLACE. HOB ELEVATED. CALL LIGHT WITHIN REACH. WILL CLOSELY MONITOR THE PATIENT
[2023-04-10 20:00] VITALS: BP 126/68; TEMP 98.8; O2SAT 99
[2023-04-10] MEDS: clonazePAM 0.5 MG TABLET PO SCH (22:17)
[2023-04-11] VITALS: BP 126/68; TEMP 98.8; O2SAT 99
[2023-04-11 04:00] VITALS: BP 152/90; TEMP 98.2; O2SAT 99
[2023-04-11 05:50] LABS: CALCIUM, SERUM 8.5 mg/dL (8.5-10.1); CREATININE 1.1 mg/dL (0.6-1.3); POTASSIUM 4.1 mmol/L (3.5-5.1)
[2023-04-11] MEDS: BLOOD SUGAR DIAGNOSTIC 1 EACH STRIP IN SCH ×4 (07:52→21:22)
[2023-04-11 08:00] VITALS: BP 150/77; TEMP 98; O2SAT 99
--- NOTE | 2023-04-11 09:00 | NUR ---
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
--- NOTE | 2023-04-11 09:17 | NUR ---
VU RN OPENING NOTES RECEIVED REPORT FROM SYSTEMS ANALYSIS MANAGER RN, PATIENT AWAKE, PATIENT IN BED A/O X3, ON 2L NC TOLERATING WELL, NO SOB NO DISTRESS BREATHING EVEN AND UNLABORED. WITH PHIL MIDLINE LINE RUNNING NS @ 75 ML/HR. ON TELE MONITOR SR HR 70'S. ALL SAFETY MEASURES IN PLACE. HOB ELEVATED. CALL LIGHT WITHIN REACH. PLAN OF CARE CONTINUE.
[2023-04-11] MEDS: IV NS 0.9% 1,000 ML IV PRN (09:21)
[2023-04-11 11:19] LABS: BASOPHILS # (AUTO) 0.1 K/uL (0.0-0.2); BASOPHILS % (AUTO) 0.7 % (0.0-2.0); EOSINOPHILS % (AUTO) 1.9 % (0.0-6.0); HEMATOCRIT 39 % (39-51); HEMOGLOBIN 12.7 g/dL (13.5-17.5); LYMPHOCYTES # (AUTO) 1.9 K/uL (0.8-4.8); LYMPHOCYTES % (AUTO) 12.7 % (20.0-44.0); MEAN CORPUSCULAR HGB CONC 33 g/dl (31.0-36.0); MEAN CORPUSCULAR VOLUME 95 fL (80-96); MONOCYTES # (AUTO) 1.4 K/uL (0.1-1.30); MONOCYTES % (AUTO) 9.7 % (2.0-12.0); NEUTROPHILS # (AUTO) 11.1 K/uL (1.8-8.9); PLATELET COUNT (AUTO) 236 K/uL (150-450); RED BLOOD CELL COUNT(AUTO) 4.09 MIL/uL (4.5-6.0); WHITE BLOOD COUNT (AUTO) 14.8 K/uL (4.3-11.0)
[2023-04-11] MEDS ORDERED: CLOP75TA15 PO (11:26)
[2023-04-11] MEDS ORDERED: FOLI0.4T6 PO (11:26)
[2023-04-11] MEDS ORDERED: OMEP1CAP24 PO (11:26)
[2023-04-11] MEDS ORDERED: GLIM1TAB18 PO (11:26)
[2023-04-11] MEDS ORDERED: BISA5TAB10 PO (11:26)
[2023-04-11] MEDS ORDERED: CETI-90 PO (11:26)
[2023-04-11] MEDS ORDERED: TAMS-12 PO (11:26)
[2023-04-11] MEDS ORDERED: CLOZ100T32 PO (11:26)
[2023-04-11] MEDS ORDERED: OLOP2.5D6 OP (11:26)
[2023-04-11] MEDS ORDERED: FERR325T23 PO (11:26)
[2023-04-11] MEDS ORDERED: SITA1TAB6 PO (11:26)
[2023-04-11] MEDS ORDERED: IBUP-1957 PO (11:26)
[2023-04-11] MEDS ORDERED: DIFLORASONE TP (11:26)
[2023-04-11] MEDS ORDERED: CHOL500062 PO (11:26)
[2023-04-11] MEDS ORDERED: DUTA0.5C PO (11:26)
[2023-04-11] MEDS ORDERED: MAGN400T8 PO (11:26)
[2023-04-11] MEDS ORDERED: ATOR20TA PO (11:26)
[2023-04-11] MEDS ORDERED: CELE200C PO (11:26)
[2023-04-11] MEDS ORDERED: MECL-159 PO (11:26)
[2023-04-11] MEDS ORDERED: CICL60SU2 TP (11:26)
[2023-04-11] MEDS ORDERED: DICL1PAT11 TP (11:26)
[2023-04-11] MEDS ORDERED: TOLT4CAP PO (11:26)
[2023-04-11] MEDS ORDERED: FLUTICASONE PROP BNOSTRILS (11:26)
[2023-04-11] MEDS ORDERED: ONDA-97 PO (11:26)
[2023-04-11] MEDS ORDERED: CYCL30DR EACHEYE (11:26)
[2023-04-11] MEDS ORDERED: ACET-2605 PO (11:26)
[2023-04-11] MEDS ORDERED: ASPI-1169 PO (11:26)
[2023-04-11 12:00] VITALS: BP 155/65; TEMP 98.5; O2SAT 100
[2023-04-11] MEDS ORDERED: MECLIZINE HCL 25 MG TABLET PO PRN (14:00)
[2023-04-11] MEDS ORDERED: ACETAMINOPHEN ES 500 MG TABLET PO PRN (14:00)
[2023-04-11] MEDS ORDERED: HOME MED MISCELLANEOUS XX SCH ×3 (14:00)
[2023-04-11] MEDS ORDERED: CELECOXIB 100 MG CAPSULE PO PRN (14:00)
[2023-04-11] MEDS: ASPIRIN 81 MG TAB.CHEW PO SCH (14:14)
[2023-04-11] MEDS: cetrizine 10 MG TABLET PO SCH (14:14)
[2023-04-11] MEDS: FOLIC ACID 1 MG TABLET PO SCH (14:14)
[2023-04-11] MEDS: CLOPIDOGREL BISULFATE 75 MG TABLET PO SCH (14:14)
[2023-04-11] MEDS: MAGNESIUM HYDROXIDE 30 ML UDC PO PRN (14:20)
[2023-04-11 16:00] VITALS: BP 155/68; TEMP 98.3; O2SAT 98
[2023-04-11] MEDS: METFORMIN 500 MG TABLET PO SCH (16:24)
[2023-04-11] MEDS: FERROUS SULFATE (325 MG) 325 MG/TAB TABLET PO SCH (16:24)
[2023-04-11] MEDS: TAMSULOSIN 0.4 MG CAP.SR.24H PO SCH (17:08)
[2023-04-11] MEDS: INSULIN REGULAR, HUMAN 100 UNIT/ML 3 ML VIAL SQ PRN ×2 (17:18→21:25)
--- NOTE | 2023-04-11 19:15 | NUR ---
RN NOTE Report received from Krystal Rai RN, patient in bed, AO x 3, in no acute distress, saturation at 98% on room air, SR on the monitor HR is 67. IV line at RAC and PHIL midline patent and flushing well, saline locked. Patient ambulates with walker and assistance. Safety measures in place, bed is locked and at lowest position, HOB elevated, call light within reach of patient. Will monitor and reassess.
[2023-04-11 20:00] VITALS: BP 132/69; TEMP 97.8; O2SAT 98
[2023-04-11] MEDS: GLIMEPIRIDE 1 MG TABLET PO SCH (21:26)
[2023-04-11] MEDS: CLOZAPINE 100 MG TABLET PO SCH (21:26)
[2023-04-11] MEDS: ATORVASTATIN 10 MG TABLET PO SCH (21:26)
[2023-04-11] MEDS: clonazePAM 0.5 MG TABLET PO SCH (21:26)
[2023-04-12] VITALS: BP 126/81; TEMP 97.4; O2SAT 95
[2023-04-12 04:00] VITALS: BP 105/78; TEMP 98.3; O2SAT 95
--- NOTE | 2023-04-12 07:28 | NUR ---
VU RN OPENING NOTES RECEIVED REPORT FROM PANELBOARD OPERATOR RN, PATIENT AWAKE, PATIENT IN BED A/O X3, ON 2L NC TOLERATING WELL, NO SOB NO DISTRESS BREATHING EVEN AND UNLABORED. WITH PHIL MIDLINE ON TELE MONITOR SR HR 78'S. ALL SAFETY MEASURES IN PLACE. HOB ELEVATED. CALL LIGHT WITHIN REACH. WILL CONTINUE TO FALLOW UP
[2023-04-12] MEDS: BLOOD SUGAR DIAGNOSTIC 1 EACH STRIP IN SCH ×4 (07:39→21:10)
[2023-04-12 08:00] VITALS: BP 138/70; TEMP 99.5; O2SAT 95
[2023-04-12] MEDS: cetrizine 10 MG TABLET PO SCH (08:18)
[2023-04-12] MEDS: LINAGLIPTIN 5 MG TABLET PO SCH (08:18)
[2023-04-12] MEDS: METFORMIN 500 MG TABLET PO SCH ×2 (08:18→16:02)
[2023-04-12] MEDS: FERROUS SULFATE (325 MG) 325 MG/TAB TABLET PO SCH ×3 (08:18→16:02)
[2023-04-12] MEDS: ASPIRIN 81 MG TAB.CHEW PO SCH (08:18)
[2023-04-12] MEDS: DUTASTERIDE (0.5 MG) 0.5 MG CAPSULE PO SCH (08:19)
[2023-04-12] MEDS: CLOPIDOGREL BISULFATE 75 MG TABLET PO SCH (08:19)
[2023-04-12] MEDS: FOLIC ACID 1 MG TABLET PO SCH (08:19)
[2023-04-12] MEDS: CHOLECALCIFEROL 1,000 UNIT TABLET (VIT D3) PO SCH (08:19)
[2023-04-12] MEDS: MAGNESIUM OXIDE 400 MG TABLET PO SCH (08:20)
[2023-04-12] MEDS: FLUTICASONE PROPIONATE 16 GM BOTTLE NS SCH (08:31)
[2023-04-12] MEDS ORDERED: TAMSULOSIN 0.4 MG CAP.SR.24H PO SCH (09:00)
[2023-04-12] MEDS: INSULIN REGULAR, HUMAN 100 UNIT/ML 3 ML VIAL SQ PRN ×2 (11:33→21:23)
[2023-04-12 12:00] VITALS: BP 129/76; TEMP 98.8; O2SAT 95
[2023-04-12 16:00] VITALS: BP 120/73; TEMP 98.6; O2SAT 96
[2023-04-12] MEDS: TAMSULOSIN 0.4 MG CAP.SR.24H PO SCH (17:07)
--- NOTE | 2023-04-12 18:41 | NUR ---
DIE FILER CLOSING NOTES PATIENT AWAKE, PATIENT IN BED A/O X3, ON ROOM AIR, TOLERATING WELL, NO SOB NO DISTRESS BREATHING EVEN AND UNLABORED. WITH PHIL MIDLINE SL. ON TELE MONITOR SR HR 70'S. PATIENT ABLE TO AMBULATE WITH A WALKER. ALL SAFETY MEASURES IN PLACE. HOB ELEVATED. CALL LIGHT WITHIN REACH. WILL ENDORSE TO NIGHT NURSE FOR SARAH.
--- NOTE | 2023-04-12 19:15 | NUR ---
GENERAL SURGERY PHYSICIAN ASSISTANT OPENING NOTES RECEIVED PATIENT AWAKE, RESTING IN BED A/O X3. NO S/S OF ACUTE DISTRESS NOTED. ON RA, TOLERATING WELL. NO SOB, BREATHING EVEN AND UNLABORED. NOTED WITH PHIL MIDLINE-SALINE LOCKED-INTACT, PATENT AND FLUSHING WELL. ALSO NOTED WITH RIGHT ANTECUBITAL IV ACCESS-SL. PATIENT DENIES ANY PAIN AT THIS TIME. SAFETY MEASURES IN PLACED. BED IN LOW AND LOCKED POSITION. CALL LIGHT AND TABLE WITHIN EASY REACH. SIDE RAILS UP X3. WILL CONTINUE TO MONITOR
[2023-04-12 20:00] VITALS: BP 112/56; TEMP 99.5; O2SAT 95
[2023-04-12] MEDS: ATORVASTATIN 10 MG TABLET PO SCH (21:21)
[2023-04-12] MEDS: CLOZAPINE 100 MG TABLET PO SCH (21:21)
[2023-04-12] MEDS: clonazePAM 0.5 MG TABLET PO SCH (21:21)
[2023-04-12] MEDS: GLIMEPIRIDE 1 MG TABLET PO SCH (21:21)
[2023-04-13] VITALS (7 sets, daily range): BP systolic 105–136; BP diastolic 61–87; TEMP 97.5–99.6; O2SAT 93–98
--- NOTE | 2023-04-13 06:30 | NUR ---
EMISSIONS TESTING AND REPAIR TECHNICIAN closing note Pt resting in bed, in stable condition, 0 s/s of pain, 0 s/s of sob, all due meds given per MD orders tolerated well, all basic needs met and anticipated, will continue to monitor
--- NOTE | 2023-04-13 07:05 | NUR ---
MS RN OPENING NOTES RECEIVED PATIENT AWAKE IN BED A/O X3. NO SIGNS OF ACUTE DISTRESS NOTED. ON ROOM AIR, TOLERATING WELL. NO SOB, BREATHING EVEN AND UNLABORED. NOTED WITH PHIL MIDLINE-SALINE LOCKED-INTACT, PATENT AND FLUSHING WELL. ALSO NOTED WITH RIGHT ANTECUBITAL IV ACCESS-SL. PATIENT DENIES ANY PAIN AT THIS TIME. SAFETY MEASURES IN PLACED. BED IN LOW AND LOCKED POSITION. CALL LIGHT AND TABLE WITHIN EASY REACH. SIDE RAILS UP X3. WILL CONTINUE WITH PLAN OF CARE.
[2023-04-13] MEDS: BLOOD SUGAR DIAGNOSTIC 1 EACH STRIP IN SCH ×4 (07:39→21:40)
[2023-04-13] MEDS: INSULIN REGULAR, HUMAN 100 UNIT/ML 3 ML VIAL SQ PRN ×4 (07:40→21:41)
[2023-04-13] MEDS: LINAGLIPTIN 5 MG TABLET PO SCH (08:18)
[2023-04-13] MEDS: CHOLECALCIFEROL 1,000 UNIT TABLET (VIT D3) PO SCH (08:19)
[2023-04-13] MEDS: DUTASTERIDE (0.5 MG) 0.5 MG CAPSULE PO SCH (08:20)
[2023-04-13] MEDS: FERROUS SULFATE (325 MG) 325 MG/TAB TABLET PO SCH ×3 (08:20→16:52)
[2023-04-13] MEDS: FOLIC ACID 1 MG TABLET PO SCH (08:20)
[2023-04-13] MEDS: CLOPIDOGREL BISULFATE 75 MG TABLET PO SCH (08:20)
[2023-04-13] MEDS: METFORMIN 500 MG TABLET PO SCH ×2 (08:20→16:52)
[2023-04-13] MEDS: cetrizine 10 MG TABLET PO SCH (08:20)
[2023-04-13] MEDS: MAGNESIUM OXIDE 400 MG TABLET PO SCH (08:20)
[2023-04-13] MEDS: ASPIRIN 81 MG TAB.CHEW PO SCH (08:20)
[2023-04-13] MEDS: FLUTICASONE PROPIONATE 16 GM BOTTLE NS SCH (10:28)
[2023-04-13] MEDS: TAMSULOSIN 0.4 MG CAP.SR.24H PO SCH (18:18)
[2023-04-13] MEDS: MAGNESIUM HYDROXIDE 30 ML UDC PO PRN (18:36)
--- NOTE | 2023-04-13 18:36 | NUR ---
MS RN NOTE PATIENT COMPLAINED THAT HE HASN'T HAD BOWEL MOVEMENT FOR 3 DAYS. GAVE MILK OF MAGNESIA PRN MED FOR CONSTIPATION. INFORMED HOSPITALIST KB RITCHIE ABOUT THE SITUATION. WILL ENDORSE TO COOK ROOM SUPERVISOR NURSE FOR FOLLOW UP.
--- NOTE | 2023-04-13 18:51 | NUR ---
MS RN CLOSING NOTES PATIENT AWAKE IN BED, WATCHING TV, A/O X3-KOSOVAN SPEAKING BUT SPEAKS AND UNDERSTANDS CZECH. NO SIGNS OF ACUTE DISTRESS NOTED. ON ROOM AIR, TOLERATED WELL. NO SOB, BREATHING EVEN AND UNLABORED. NOTED WITH PHIL MIDLINE-SALINE LOCKED-INTACT, PATENT AND FLUSHING WELL. ALSO NOTED WITH RIGHT ANTECUBITAL IV ACCESS-SL. PATIENT DENIES ANY PAIN AT THIS TIME. ALL DUE MEDS GIVEN. ALL NURSING NEEDS ATTENDED. SAFETY MEASURES IMPLEMENTED. BED IN LOW AND LOCKED POSITION. CALL LIGHT AND TABLE WITHIN EASY REACH. SIDE RAILS UP X3. WILL ENDORSE TO MECHANICAL DRAWING TEACHER NURSE FOR CONTINUITY OF CARE.
--- NOTE | 2023-04-13 19:15 | NUR ---
MANAGER OF PHARMACY OPENING NOTES RECEIVED PATIENT AWAKE, RESTING IN BED A/O X3. NO S/S OF ACUTE DISTRESS NOTED. ON RA, TOLERATING WELL. NO SOB, BREATHING EVEN AND UNLABORED. NOTED WITH PHIL MIDLINE-SALINE LOCKED-INTACT, PATENT AND FLUSHING WELL. ALSO NOTED WITH RIGHT ANTECUBITAL IV ACCESS-SL. PATIENT DENIES ANY PAIN AT THIS TIME. SAFETY MEASURES IN PLACED. BED IN LOW AND LOCKED POSITION. CALL LIGHT AND TABLE WITHIN EASY REACH. SIDE RAILS UP X3. WILL CONTINUE TO MONITOR
[2023-04-13] MEDS: CLOZAPINE 100 MG TABLET PO SCH (21:42)
[2023-04-13] MEDS: ATORVASTATIN 10 MG TABLET PO SCH (21:42)
[2023-04-13] MEDS: clonazePAM 0.5 MG TABLET PO SCH (21:42)
[2023-04-13] MEDS: GLIMEPIRIDE 1 MG TABLET PO SCH (21:42)
[2023-04-14] VITALS: BP 122/61; TEMP 99.6; O2SAT 93
[2023-04-14 04:00] VITALS: BP 114/74; TEMP 98.6; O2SAT 94
--- NOTE | 2023-04-14 06:38 | NUR ---
COOK BOAT closing note Pt resting in bed, in stable condition, 0 s/s of pain, 0 s/s of sob, all due meds given per MD orders tolerated well, all basic needs met and anticipated, will continue to monitor
[2023-04-14 06:55] LABS: BASOPHILS % (AUTO) 0.3 % (0.0-2.0); EOSINOPHILS % (AUTO) 2.1 % (0.0-6.0); HEMATOCRIT 38 % (39-51); HEMOGLOBIN 12.5 g/dL (13.5-17.5); LYMPHOCYTES # (AUTO) 1.9 K/uL (0.8-4.8); LYMPHOCYTES % (AUTO) 18.1 % (20.0-44.0); MEAN CORPUSCULAR HGB CONC 33 g/dl (31.0-36.0); MEAN CORPUSCULAR VOLUME 94 fL (80-96); MONOCYTES # (AUTO) 1.2 K/uL (0.1-1.30); MONOCYTES % (AUTO) 11.3 % (2.0-12.0); NEUTROPHILS # (AUTO) 7.1 K/uL (1.8-8.9); NEUTROPHILS % (AUTO) 68.2 % (43.0-81.0); PLATELET COUNT (AUTO) 239 K/uL (150-450); RED BLOOD CELL COUNT(AUTO) 4.07 MIL/uL (4.5-6.0); WHITE BLOOD COUNT (AUTO) 10.5 K/uL (4.3-11.0)
--- NOTE | 2023-04-14 07:07 | NUR ---
RN OPENING NOTE PATIENT AWAKE, A/O X3, ON RA, NO SOB, IV ACCESS PHIL MIDLINE, INTACT AND PATENT. ON TELE MONITOR SR HR 78'S. ALL SAFETY MEASURES IN PLACE. HOB ELEVATED. CALL LIGHT WITHIN REACH. WILL CONTINUE TO MONITOR.
[2023-04-14 07:09] LABS: CALCIUM, SERUM 8.8 mg/dL (8.5-10.1); CREATININE 1.3 mg/dL (0.6-1.3); POTASSIUM 4.3 mmol/L (3.5-5.1)
[2023-04-14] MEDS: BLOOD SUGAR DIAGNOSTIC 1 EACH STRIP IN SCH ×4 (07:37→21:23)
[2023-04-14 08:00] VITALS: BP_SYST 130; BP_SYST 145; BP_DIAS 85; BP_DIAS 91; TEMP 98.1; O2SAT 93; O2SAT 95
[2023-04-14] MEDS: DUTASTERIDE (0.5 MG) 0.5 MG CAPSULE PO SCH (08:58)
[2023-04-14] MEDS: FERROUS SULFATE (325 MG) 325 MG/TAB TABLET PO SCH ×3 (08:58→16:17)
[2023-04-14] MEDS: MAGNESIUM OXIDE 400 MG TABLET PO SCH (08:58)
[2023-04-14] MEDS: ASPIRIN 81 MG TAB.CHEW PO SCH (08:58)
[2023-04-14] MEDS: CHOLECALCIFEROL 1,000 UNIT TABLET (VIT D3) PO SCH (08:58)
[2023-04-14] MEDS: cetrizine 10 MG TABLET PO SCH (08:59)
[2023-04-14] MEDS: METFORMIN 500 MG TABLET PO SCH ×2 (08:59→16:17)
[2023-04-14] MEDS: FOLIC ACID 1 MG TABLET PO SCH (08:59)
[2023-04-14] MEDS: LINAGLIPTIN 5 MG TABLET PO SCH (08:59)
[2023-04-14] MEDS: CLOPIDOGREL BISULFATE 75 MG TABLET PO SCH (08:59)
[2023-04-14] MEDS: FLUTICASONE PROPIONATE 16 GM BOTTLE NS SCH (09:00)
[2023-04-14 12:00] VITALS: BP 145/91; TEMP 98.1; O2SAT 93
[2023-04-14 16:00] VITALS: BP 131/84; TEMP 98.1; O2SAT 93
--- NOTE | 2023-04-14 16:34 | NUR ---
BS LEVEL 149, PT REFUSED INSULIN INJECTION
[2023-04-14] MEDS: TAMSULOSIN 0.4 MG CAP.SR.24H PO SCH (18:03)
--- NOTE | 2023-04-14 19:05 | NUR ---
RN CLOSING NOTE PATIENT RESTING IN BED. IN NO ACUTE DISTRESS OBSERVED. RESPIRATORY EVEN AND UNLABORED IN ROOM AIR, NO SOB OR DESATURATION NOTED. SKIN IS WARM TO TOUCH KEEP CLEAN/DRY. LOWEST BED POSITION. BED ALARM IS ON AT ALL THE TIME FOR SAFETY. CALL LIGHT WITHIN REACH, WILL ENDORSE CODING MANAGER.
--- NOTE | 2023-04-14 19:30 | NUR ---
MS RN OPENING NOTE RECEIVED PATIENT FROM AM NURSE; PATIENT AWAKE IN BED, A/O X 3-4, WITH UNSTEADY GAIT; STABLE ON ROOM AIR, BREATHING EVENLY AND NO S/S OF DISTRESS NOTED; WITH IV ACCESS AT RIGHT AC G#22 AND MIDLINE ACCESS AT LEFT UA; ENCOURAGED VERBALIZATION OF NEEDS AND ADVISED TO USE CALL LIGHT IF HE NEEDS ANYTHING; SAFETY MEASURES IMPLEMENTED, BED LOCKED IN LOWEST POSITION, SIDE RAILS UP X 2, CALL LIGHT AND TABLE WITHIN REACH; HOB ELEVATED; BED ALARM ON; WILL CONTINUE TO MONITOR THROUGHOUT SHIFT
[2023-04-14 20:00] VITALS: BP 123/70; TEMP 98.5; O2SAT 95
[2023-04-14] MEDS: clonazePAM 0.5 MG TABLET PO SCH (21:12)
[2023-04-14] MEDS: GLIMEPIRIDE 1 MG TABLET PO SCH (21:12)
[2023-04-14] MEDS: ATORVASTATIN 10 MG TABLET PO SCH (21:12)
[2023-04-14] MEDS: CLOZAPINE 100 MG TABLET PO SCH (21:13)
[2023-04-14] MEDS: INSULIN REGULAR, HUMAN 100 UNIT/ML 3 ML VIAL SQ PRN (21:41)
--- NOTE | 2023-04-14 22:00 | NUR ---
MS RN NOTE PATIENT'S BLOOD SUGAR WAS 131. WAS SUPPOSE TO ADMINISTER 2 UNITS OF INSULIN PER SLIDING SCALE BUT PATIENT REFUSED STATING THAT HIS BLOOD SUGAR IS JUST OKAY.
[2023-04-15 04:00] VITALS: BP 121/72; TEMP 98.2; O2SAT 96
--- NOTE | 2023-04-15 06:49 | NUR ---
MS RN CLOSING NOTE PATIENT RESTING IN BED, A/O X 3-4, WITH UNSTEADY GAIT; STABLE ON ROOM AIR, BREATHING EVENLY AND NO S/S OF DISTRESS NOTED; WITH IV ACCESS AT RIGHT AC G#22 AND MIDLINE ACCESS AT LEFT UA, INTACT AND FLUSHES WELL; ADMINISTERED MEDICATIONS PRESCRIBED; ADVISED TO USE CALL LIGHT IF NEEDED; NEEDS ATTENDED; NO COMPLAINTS OF PAIN AND DISCOMFORT AT THIS TIME; SAFETY MEASURES IMPLEMENTED, BED LOCKED IN LOWEST POSITION, SIDE RAILS UP X 2, CALL LIGHT AND TABLE WITHIN REACH; HOB ELEVATED; BED ALARM ON; WILL ENDORSE TO AM NURSE FOR SARAH.
--- NOTE | 2023-04-15 07:00 | NUR ---
ASSOCIATE PROFESSOR OF GEOGRAPHY OPENING NOTE PATIENT AWAKE, ALERT AND ORIENTED X2. PATIENT HAS PERIODS OF CONFUSION. 02 SAT IN ROOM AIR 95% NO S/S OF RESPIRATORY DISTRESS NOTED. IV ACCESS TO R AC INTACT.SAFETY MEASURES IN PLACE: BED LOCKED TO THE LOWEST POSITION, CALL LIGHT AND TABLE WITHIN REACH, BED ALARM ON. HOB ELEVATED. SIDE RAILS UPX4. PATIENT IS INCONTINENT, FALL PRECAUTION, UNSTEADY GAIT NOTED. PATIENT DENIES PAIN AT PRESENT. CONT. TO MONITOR.
[2023-04-15] MEDS: BLOOD SUGAR DIAGNOSTIC 1 EACH STRIP IN SCH ×4 (07:47→17:55)
[2023-04-15] MEDS: FOLIC ACID 1 MG TABLET PO SCH (08:34)
[2023-04-15] MEDS: CHOLECALCIFEROL 1,000 UNIT TABLET (VIT D3) PO SCH (08:34)
[2023-04-15] MEDS: FERROUS SULFATE (325 MG) 325 MG/TAB TABLET PO SCH ×3 (08:35→17:23)
[2023-04-15] MEDS: MAGNESIUM OXIDE 400 MG TABLET PO SCH (08:35)
[2023-04-15] MEDS: DUTASTERIDE (0.5 MG) 0.5 MG CAPSULE PO SCH (08:35)
[2023-04-15] MEDS: LINAGLIPTIN 5 MG TABLET PO SCH (08:35)
[2023-04-15] MEDS: METFORMIN 500 MG TABLET PO SCH ×2 (08:35→17:23)
[2023-04-15] MEDS: cetrizine 10 MG TABLET PO SCH (08:35)
[2023-04-15] MEDS: CLOPIDOGREL BISULFATE 75 MG TABLET PO SCH (08:35)
[2023-04-15] MEDS: ASPIRIN 81 MG TAB.CHEW PO SCH (08:35)
[2023-04-15] MEDS: FLUTICASONE PROPIONATE 16 GM BOTTLE NS SCH (10:28)
[2023-04-15 12:00] VITALS: BP 144/89; TEMP 98.2; O2SAT 96
[2023-04-15] MEDS: TAMSULOSIN 0.4 MG CAP.SR.24H PO SCH (17:23)
--- NOTE | 2023-04-15 17:56 | NUR ---
LABOURERS NOTE GLUCOSE LEVEL 97, NO INSULIN COVERAGE.
--- NOTE | 2023-04-15 18:45 | NUR ---
STEEL BUFFER CLOSING NOTE PATIENT AWAKE, ALERT AND ORIENTED X3, DENIES PAIN, O2 SAT IN ROOM AIR 96%, NO S/S OF RESPIRATORY DISTRESS NOTED. SAFETY MEASURES IN PLACE: BED LOCKED TO THE LOWEST POSITION, SIDE RAILS UPX4, CALL LIGHT, TABLE AND URINAL WITHIN REACH. I INSTRUCTED TO PATIENT NOT TO GET OUT OF BED WITHOUT ASSISTANCE. PATIENT IS FALL PRECAUTION, BED ALARM ON. I WILL ENDORSE TO THE FOLLOWING NURSE FOR SARAH.
[2023-04-15 20:00] VITALS: BP 142/85; TEMP 98.3; O2SAT 96
[2023-04-15 20:11] LABS: CALCIUM, SERUM 9.8 mg/dL (8.5-10.1); CARBON DIOXIDE 28 mmol/L (21-32); CHLORIDE 103 mmol/L (98-107); CREATININE 1.5 mg/dL (0.6-1.3); GLUCOSE 143 mg/dL (74-106); POTASSIUM 4.8 mmol/L (3.5-5.1); SODIUM SERUM 140 mmol/L (136-145); UREA NITROGEN, BLOOD 24 mg/dL (7-18)
[2023-04-15] MEDS: GLIMEPIRIDE 1 MG TABLET PO SCH (21:46)
[2023-04-15] MEDS: CLOZAPINE 100 MG TABLET PO SCH (21:46)
[2023-04-15] MEDS: ATORVASTATIN 10 MG TABLET PO SCH (21:48)
[2023-04-15] MEDS: clonazePAM 0.5 MG TABLET PO SCH (21:49)
[2023-04-16 04:00] VITALS: BP 122/66; TEMP 98.3; O2SAT 96
[2023-04-16] MEDS: BLOOD SUGAR DIAGNOSTIC 1 EACH STRIP IN SCH ×5 (06:00→21:13)
--- NOTE | 2023-04-16 06:00 | NUR ---
RN NOTES BLOOD SUGAR CHECK AT 6AM RESULT OF 116MG/DL.
--- NOTE | 2023-04-16 06:16 | NUR ---
RN NOTES PHIL MIDLINE DRESSING CHANGED ASEPTICALLY, MIDLINE IS PATENT AND INTACT. IV LINE AT LEFT AC RE-DRESSED AND SALINE FLUSH DONE KEPT LINE PATENT AND INTACT.
--- NOTE | 2023-04-16 06:36 | NUR ---
MS RN CLOSING NOTE PATIENT RESTING IN BED, A/O X 3-4, WITH UNSTEADY GAIT; STABLE ON ROOM AIR, BREATHING EVENLY AND NO S/S OF DISTRESS NOTED; WITH IV ACCESS AT RIGHT AC G#22 AND MIDLINE ACCESS AT LEFT UA, INTACT AND FLUSHES WELL; ADMINISTERED MEDICATIONS PRESCRIBED; ADVISED TO USE CALL LIGHT IF NEEDED; NEEDS ATTENDED;PM CARE RENDERED, NO COMPLAINTS OF PAIN AND DISCOMFORT AT THIS TIME; MIDLINE DRESSING DONE ASEPTICALLY, AND IV CARE DONE, SAFETY MEASURES IMPLEMENTED, BED LOCKED IN LOWEST POSITION, SIDE RAILS UP X 2, CALL LIGHT AND TABLE WITHIN REACH; HOB ELEVATED; BED ALARM ON; WILL ENDORSE TO AM NURSE FOR SAARH.
--- NOTE | 2023-04-16 07:35 | NUR ---
MS RN NOTE Patient is resting in bed without active complaint. IV site over left upper arm midline is dry and intact, patent with NS flush. Bed alarm is on as patient is at high risk of fall with unsteady gait. Bed is locked and placed in the lowest position. Call light is placed within reach. Keep observation and monitoring.
[2023-04-16 08:00] VITALS: BP 141/93; TEMP 98.5; O2SAT 96
--- NOTE | 2023-04-16 08:23 | NUR ---
MS RN OPENING NOTE Received patient in bed, awake. A/O x 4, able to make needs known. On room air, tolerating well. IV access in the RAC #20g, sl and midline at PHIL, sl. Safety measures maintained: bed in lowest locked position, side rails up x 3, call light and tray table within easy reach. Will continue to monitor.
[2023-04-16] MEDS: FLUTICASONE PROPIONATE 16 GM BOTTLE NS SCH (09:10)
[2023-04-16] MEDS: ASPIRIN 81 MG TAB.CHEW PO SCH (09:11)
[2023-04-16] MEDS: CHOLECALCIFEROL 1,000 UNIT TABLET (VIT D3) PO SCH (09:11)
[2023-04-16] MEDS: MAGNESIUM OXIDE 400 MG TABLET PO SCH (09:11)
[2023-04-16] MEDS: FERROUS SULFATE (325 MG) 325 MG/TAB TABLET PO SCH ×3 (09:11→17:09)
[2023-04-16] MEDS: DUTASTERIDE (0.5 MG) 0.5 MG CAPSULE PO SCH (09:11)
[2023-04-16] MEDS: FOLIC ACID 1 MG TABLET PO SCH (09:11)
[2023-04-16] MEDS: METFORMIN 500 MG TABLET PO SCH ×2 (09:11→17:09)
[2023-04-16] MEDS: LINAGLIPTIN 5 MG TABLET PO SCH (09:11)
[2023-04-16] MEDS: cetrizine 10 MG TABLET PO SCH (09:12)
[2023-04-16] MEDS: CLOPIDOGREL BISULFATE 75 MG TABLET PO SCH (09:12)
[2023-04-16 12:00] VITALS: BP 138/92; TEMP 98.7; O2SAT 98
--- NOTE | 2023-04-16 12:00 | NUR ---
RN NOTE Patient refused Insulin coverage for 1200, BS-139, despite explaining the importance of medicine. Will continue to monitor.
[2023-04-16] MEDS: INSULIN REGULAR, HUMAN 100 UNIT/ML 3 ML VIAL SQ PRN ×2 (12:30→21:26)
[2023-04-16] MEDS: TAMSULOSIN 0.4 MG CAP.SR.24H PO SCH (17:09)
--- NOTE | 2023-04-16 18:45 | NUR ---
MS RN CLOSING NOTE Patient resting in bed. A/O x 4, no c/o pain/discomfort within the shift. On room air, saturating well. IV access in the RAC #20g, sl and midline at PHIL, sl. Needs attended. Safety measures maintained: bed in lowest locked position, side rails up x 3, call light and tray table within easy reach. Will endorse janny to director manufacturing engineering.
--- NOTE | 2023-04-16 19:30 | NUR ---
MS RN OPENING NOTE RECEIVED PATIENT IN BED, ASLEEP, BUT EASY TO AROUSE AND RESPONSIVE. AFEBRILE AND NOT IN ANY FORM OF ACUTE DISTRESS. BREATHING EVEN AND NON LABORED. WITH IV ACCESS ON RAC 20G AND PHIL ML-SL. SAFETY MEASURES IN PLACE. KEPT BED IN LOCKED AND IN LOW POSITION. SIDE RAILS UP X2. ADVISED TO USE THE CALL LIGHT WHEN IN NEED OF ASSISTANCE.
[2023-04-16 20:00] VITALS: BP 121/76; TEMP 97.3; O2SAT 92
[2023-04-16] MEDS: ATORVASTATIN 10 MG TABLET PO SCH (21:13)
[2023-04-16] MEDS: GLIMEPIRIDE 1 MG TABLET PO SCH (21:13)
[2023-04-16] MEDS: clonazePAM 0.5 MG TABLET PO SCH (21:14)
[2023-04-16] MEDS: CLOZAPINE 100 MG TABLET PO SCH (21:17)
[2023-04-17 04:00] VITALS: BP 130/75; TEMP 97.5; O2SAT 94
--- NOTE | 2023-04-17 06:30 | NUR ---
MS RN CLOSING NOTE PATIENT IN BED, ASLEEP, BUT EASY TO AROUSE AND RESPONSIVE. AFEBRILE AND NOT IN ANY FORM OF ACUTE DISTRESS. BREATHING EVEN AND NON LABORED. WITH IV ACCESS ON RAC 20G AND PHIL ML-SL. MONITORED FOR ANY S/SX. OF HYPO/HYPERGLYCEMIA. MEDICATED ORDERED. SAFETY MEASURES IN PLACE. KEPT BED IN LOCKED AND IN LOW POSITION. SIDE RAILS UP X2. ADVISED TO USE THE CALL LIGHT WHEN IN NEED OF ASSISTANCE. ALL NURSING NEEDS ATTENDED. ENDORSED TO INCOMING SHIFT FOR CONTINUITY OF CARE.
[2023-04-17] MEDS: BLOOD SUGAR DIAGNOSTIC 1 EACH STRIP IN SCH ×4 (06:39→21:55)
--- NOTE | 2023-04-17 07:37 | NUR ---
MS RN OPENING NOTE RECEIVED PATIENT AWAKE IN BED, A/OX4. AFEBRILE AND NOT IN ANY FORM OF ACUTE DISTRESS. BREATHING EVEN AND NON LABORED. WITH IV ACCESS ON RAC 20G AND PHIL ML-SL. SAFETY MEASURES IN PLACE. KEPT BED IN LOCKED AND IN LOW POSITION. SIDE RAILS UP X2. ADVISED TO USE THE CALL LIGHT WHEN IN NEED OF ASSISTANCE. WILL CONTINUE TO MONITOR PATIENT.
[2023-04-17] MEDS: CHOLECALCIFEROL 1,000 UNIT TABLET (VIT D3) PO SCH (08:24)
[2023-04-17] MEDS: DUTASTERIDE (0.5 MG) 0.5 MG CAPSULE PO SCH (08:24)
[2023-04-17] MEDS: MAGNESIUM OXIDE 400 MG TABLET PO SCH (08:25)
[2023-04-17] MEDS: FERROUS SULFATE (325 MG) 325 MG/TAB TABLET PO SCH ×3 (08:25→17:17)
[2023-04-17] MEDS: cetrizine 10 MG TABLET PO SCH (08:25)
[2023-04-17] MEDS: METFORMIN 500 MG TABLET PO SCH ×2 (08:25→17:17)
[2023-04-17] MEDS: CLOPIDOGREL BISULFATE 75 MG TABLET PO SCH (08:25)
[2023-04-17] MEDS: ASPIRIN 81 MG TAB.CHEW PO SCH (08:25)
[2023-04-17] MEDS: FOLIC ACID 1 MG TABLET PO SCH (08:25)
[2023-04-17 08:35] LABS: CALCIUM, SERUM 8.8 mg/dL (8.5-10.1); CREATININE 1.1 mg/dL (0.6-1.3); POTASSIUM 4.4 mmol/L (3.5-5.1)
[2023-04-17] MEDS: LINAGLIPTIN 5 MG TABLET PO SCH (09:01)
[2023-04-17] MEDS: FLUTICASONE PROPIONATE 16 GM BOTTLE NS SCH (09:01)
[2023-04-17 12:00] VITALS: BP 120/75; TEMP 98; O2SAT 94
[2023-04-17] MEDS: INSULIN REGULAR, HUMAN 100 UNIT/ML 3 ML VIAL SQ PRN ×3 (12:29→21:56)
[2023-04-17] MEDS: TAMSULOSIN 0.4 MG CAP.SR.24H PO SCH (17:17)
--- NOTE | 2023-04-17 18:44 | NUR ---
MS RN CLOSING NOTE PATIENT AWAKE IN BED, A/OX4. AFEBRILE AND NOT IN ANY FORM OF ACUTE DISTRESS. BREATHING EVEN AND NON LABORED. WITH IV ACCESS ON RAC 20G AND PHIL ML-SL. MONITORED FOR ANY S/SX OF HYPO/HYPERGLYCEMIA. MEDICATED ORDERED. SAFETY MEASURES IN PLACE. KEPT BED IN LOCKED AND IN LOW POSITION. SIDE RAILS UP X2. ADVISED TO USE THE CALL LIGHT WHEN IN NEED OF ASSISTANCE. ALL NURSING NEEDS ATTENDED. ENDORSED TO INCOMING SHIFT FOR CONTINUITY OF CARE.
--- NOTE | 2023-04-17 19:00 | NUR ---
FILE CONVERSION OPERATOR OPENING NOTE Received patient in bed, awake. A/O x 4, able to make needs known. On room air, tolerating well. IV access in the RAC #20g, sl and midline at PHIL, sl. Safety measures maintained: bed in lowest locked position, side rails up x 3, call light and tray table within easy reach. Will continue to monitor.
[2023-04-17 20:00] VITALS: BP 120/65; TEMP 98.7; O2SAT 92
[2023-04-17] MEDS: CLOZAPINE 100 MG TABLET PO SCH (21:56)
[2023-04-17] MEDS: GLIMEPIRIDE 1 MG TABLET PO SCH (21:56)
[2023-04-17] MEDS: clonazePAM 0.5 MG TABLET PO SCH (21:56)
[2023-04-17] MEDS: ATORVASTATIN 10 MG TABLET PO SCH (21:56)
[2023-04-18 04:00] VITALS: BP 121/71; TEMP 97.6; O2SAT 97
--- NOTE | 2023-04-18 06:45 | NUR ---
COOK CHILI CLOSING NOTE PATIENT IN BED, ALERT AND ORIENTED X3. BREATHING EVEN AND UNLABORED, ON RA, NO SOB, IV ACCESS RAC #22G AND PHIL ML, DRESSING C/D/I. ALL DUE MEDS GIVEN PER MD ORDERS TOLERATED WELL, ALL BASIC NEEDS MET AND ANTICIPATED, SAFETY MEASURES IN PLACE. BED IN LOCKED AND IN LOW POSITION. SIDE RAILS UP X2. CALL LIGHT WITHIN REACH, WILL CONTINUE TO MONITOR
--- NOTE | 2023-04-18 07:00 | NUR ---
INSURANCE UNDERWRITING ASSISTANT OPENING NOTE PATIENT AWAKE,ALERT AND ORIENTED X3. DENIES SOB, O2 SAT IN ROOM AIR 97%, DENIES PAIN. NO RESPIRATORY DISTRESS NOTED. HOB ELEVATED. IV ACCESS TO RAC#22G INTACT. PHIL MID-LINE INTACT. PATIENT IS ON FALL PRECAUTION PROTOCOL, SAFETY MEASURES IN PLACE: SIDE RAILS ELEVATED X4, BED ALARM ON, BED LOCKED TO THE LOWEST POSITION, CALL LIGHT AND TABLE WITHIN REACH. PATIENT INSTRUCTED TO CALL FOR HELP. DO NOT GET OUT OF BED WITHOUT ASSISTANCE. UNSTEADY GAIT NOTED. PATIENT VERBALIZED UNDERSTANDING INSTRUCTIONS AND AGREE TO CALL FOR HELP. CONT. TO MONITOR.
[2023-04-18] MEDS: BLOOD SUGAR DIAGNOSTIC 1 EACH STRIP IN SCH ×4 (07:47→22:09)
[2023-04-18] MEDS: CLOPIDOGREL BISULFATE 75 MG TABLET PO SCH (08:26)
[2023-04-18] MEDS: METFORMIN 500 MG TABLET PO SCH ×2 (08:26→17:37)
[2023-04-18] MEDS: DUTASTERIDE (0.5 MG) 0.5 MG CAPSULE PO SCH (08:26)
[2023-04-18] MEDS: FERROUS SULFATE (325 MG) 325 MG/TAB TABLET PO SCH ×3 (08:26→17:37)
[2023-04-18] MEDS: LINAGLIPTIN 5 MG TABLET PO SCH (08:26)
[2023-04-18] MEDS: FOLIC ACID 1 MG TABLET PO SCH (08:27)
[2023-04-18] MEDS: cetrizine 10 MG TABLET PO SCH (08:27)
[2023-04-18] MEDS: CHOLECALCIFEROL 1,000 UNIT TABLET (VIT D3) PO SCH (08:27)
[2023-04-18] MEDS: MAGNESIUM OXIDE 400 MG TABLET PO SCH (08:27)
[2023-04-18] MEDS: ASPIRIN 81 MG TAB.CHEW PO SCH (08:27)
[2023-04-18] MEDS: FLUTICASONE PROPIONATE 16 GM BOTTLE NS SCH (08:51)
[2023-04-18] MEDS: BISACODYL (5 MG) 5 MG TABLET.DR PO PRN (10:55)
[2023-04-18 12:00] VITALS: BP 134/65; TEMP 97.8; O2SAT 95
--- NOTE | 2023-04-18 12:00 | NUR ---
STOCK CLIPPER NOTE GLUCOSE LEVEL IS 122, NO INSULIN .
[2023-04-18 16:00] VITALS: BP 139/74; TEMP 97.4
[2023-04-18] MEDS: TAMSULOSIN 0.4 MG CAP.SR.24H PO SCH (17:37)
--- NOTE | 2023-04-18 18:00 | NUR ---
SALESPERSON JEWELRY NOTE GLUCOSE LEVEL 100, NO INSULIN
--- NOTE | 2023-04-18 18:43 | NUR ---
NARROW FABRICS WEAVER CLOSING NOTE PATIENT AWAKE,ALERT AND ORIENTED X3. O2 SAT IN ROOM AIR 96%, NO S/S OF RESPIRATORY DISTRESS NOTED. PATIENT DENIES PAIN. HOB ELEVATED, AMBULATE WITH PHYSICAL THERAPY USING WALKER, PATIENT IS UNSTEADY. RISK FOR FALLS. SAFETY MEASURES IN PLACE: BED LOCKED TO THE LOWEST POSITION, CALL LIGHT, URINAL AND TABLE WITHIN REACH. SIDE RAILS UP X4, BED ALARM ON. I WILL ENDORSE TO THE FOLLOWING NURSE FOR SARAH.
--- NOTE | 2023-04-18 19:19 | NUR ---
RN NOTE RECEIVED PT FOR CONTINUITY OF CARE. PATIENT A/OX3-4 IN NO S/SX OF ACUTE DISTRESS AT THIS TIME; CURRENTLY ON ROOM AIR; WITH 02 SAT >95% AT THIS TIME.WITH IV ACCESS PATENT, INTACT AND FLUSHING WELL. WILL ENSURE SAFETY MEASURES WITHIN THE SHIFT. PATIENT BED ALARM IS ON. HEAD OF BED ELEVATED. BED IS LOCKED, IN LOWEST POSITION AND SIDE RAILS UP. CALL LIGHT WITHIN REACH OF THE PATIENT. WILL CONTINUE TO MONITOR AND REASSESS FOR ANY CHANGES AND WILL CARRY OUT ANY ONGOING AND ACTIVE MD ORDER.
[2023-04-18 20:00] VITALS: BP 138/78; TEMP 97.9; O2SAT 95
[2023-04-18] MEDS: clonazePAM 0.5 MG TABLET PO SCH (21:39)
[2023-04-18] MEDS: CLOZAPINE 100 MG TABLET PO SCH (21:39)
[2023-04-18] MEDS: ATORVASTATIN 10 MG TABLET PO SCH (21:39)
[2023-04-18] MEDS: GLIMEPIRIDE 1 MG TABLET PO SCH (21:39)
[2023-04-19 04:00] VITALS: BP 118/80; TEMP 97.5; O2SAT 95
--- NOTE | 2023-04-19 06:48 | NUR ---
RN NOTE PATIENT REMAINS IN ROOM IN NO SIGNS OF RESPIRATORY DISTRESS, PATIENT STILL ON ROOM AIR ;TOLERATING WELL SATURATING @ >95% SP02. SAFETY MEASURES IMPLEMENTED, BED IN LOWEST POSITION, LOCKED, SIDE RAILS UP, CALL LIGHT WITHIN REACH. ALL NEEDS AND ORDERS ADDRESSED DURING THE SHIFT. IV ACCESS MAINTAINED INTACT, SECURED AND FLUSHING WELL. ALL DUE MEDS GIVEN ORDERED & SCHEDULED ; PATIENT TOLERATED WELL. PATIENT KEPT CLEAN AND COMFORTABLE WITHIN THE SHIFT. PLAN: FOR DC PLANNING TO SNF (PENDING PLACEMENT) PATIENT ENDORSED TO INCOMING SHIFT RN WITH STABLE VITAL SIGN AND FOR CONTINUITY OF CARE.
--- NOTE | 2023-04-19 07:30 | NUR ---
MS RN OPENING NOTES RECEIVED PT FOR CONTINUITY OF CARE. PATIENT A/OX3-4 IN NO S/SX OF ACUTE DISTRESS AT THIS TIME; CURRENTLY ON ROOM AIR; WITH 02 SAT >95% AT THIS TIME.WITH IV ACCESS PATENT, INTACT AND FLUSHING WELL. PATIENT BED ALARM IS ON. HEAD OF BED ELEVATED. BED IS LOCKED, IN LOWEST POSITION AND SIDE RAILS UP. CALL LIGHT WITHIN REACH OF THE PATIENT. WILL CONTINUE PLAN OF CARE.
[2023-04-19 07:42] LABS: CALCIUM, SERUM 8.6 mg/dL (8.5-10.1); CREATININE 1.2 mg/dL (0.6-1.3); POTASSIUM 4.1 mmol/L (3.5-5.1)
[2023-04-19] MEDS: BLOOD SUGAR DIAGNOSTIC 1 EACH STRIP IN SCH ×4 (08:07→22:17)
[2023-04-19] MEDS: ASPIRIN 81 MG TAB.CHEW PO SCH (09:27)
[2023-04-19] MEDS: DUTASTERIDE (0.5 MG) 0.5 MG CAPSULE PO SCH (09:27)
[2023-04-19] MEDS: CHOLECALCIFEROL 1,000 UNIT TABLET (VIT D3) PO SCH (09:27)
[2023-04-19] MEDS: METFORMIN 500 MG TABLET PO SCH ×2 (09:27→16:10)
[2023-04-19] MEDS: FERROUS SULFATE (325 MG) 325 MG/TAB TABLET PO SCH ×3 (09:28→16:10)
[2023-04-19] MEDS: cetrizine 10 MG TABLET PO SCH (09:28)
[2023-04-19] MEDS: MAGNESIUM OXIDE 400 MG TABLET PO SCH (09:28)
[2023-04-19] MEDS: FOLIC ACID 1 MG TABLET PO SCH (09:28)
[2023-04-19] MEDS: CLOPIDOGREL BISULFATE 75 MG TABLET PO SCH (09:28)
[2023-04-19] MEDS: LINAGLIPTIN 5 MG TABLET PO SCH (09:28)
[2023-04-19] MEDS: FLUTICASONE PROPIONATE 16 GM BOTTLE NS SCH (09:29)
[2023-04-19 12:00] VITALS: BP 107/71; TEMP 98.5; O2SAT 98
[2023-04-19] MEDS: INSULIN REGULAR, HUMAN 100 UNIT/ML 3 ML VIAL SQ PRN ×2 (16:10→22:23)
[2023-04-19] MEDS: TAMSULOSIN 0.4 MG CAP.SR.24H PO SCH (17:04)
--- NOTE | 2023-04-19 18:37 | NUR ---
MS RN CLOSING NOTES PATIENT AWAKE IN BED. PATIENT A/OX3-4 IN NO S/SX OF ACUTE DISTRESS AT THIS TIME; CURRENTLY ON ROOM AIR; WITH 02 SAT >95% AT THIS TIME.WITH IV ACCESS PATENT, INTACT AND FLUSHING WELL. PATIENT BED ALARM IS ON. HEAD OF BED ELEVATED. BED IS LOCKED, IN LOWEST POSITION AND SIDE RAILS UP. CALL LIGHT WITHIN REACH OF THE PATIENT. WILL ENDORSE TO NIGHT NURSE FOR SARAH.
[2023-04-19 20:00] VITALS: BP 139/85; TEMP 98; O2SAT 96
[2023-04-19] MEDS: clonazePAM 0.5 MG TABLET PO SCH (21:51)
[2023-04-19] MEDS: CLOZAPINE 100 MG TABLET PO SCH (21:51)
[2023-04-19] MEDS: GLIMEPIRIDE 1 MG TABLET PO SCH (21:51)
[2023-04-19] MEDS: BISACODYL (5 MG) 5 MG TABLET.DR PO PRN (21:51)
[2023-04-19] MEDS: ATORVASTATIN 10 MG TABLET PO SCH (21:51)
[2023-04-20 04:00] VITALS: BP 121/87; TEMP 98; O2SAT 97
--- NOTE | 2023-04-20 07:43 | NUR ---
MS RN NOTE PATIENT IN BED ,NO SIGNS OF RESPIRATORY DISTRESS, PATIENT STILL ON ROOM AIR ,TOLERATING WELL SAFETY MEASURES IMPLEMENTED, BED IN LOWEST POSITION, LOCKED, SIDE RAILS UP, CALL LIGHT WITHIN REACH. . IV ACCESS MAINTAINED INTACT, SECURED AND FLUSHING WELL. . PATIENT CLEAN COMFORTABLE,LT UPPER ARM MID LINE IN PLACE , WILL CONT TO MONITOR CLOSELY
[2023-04-20] MEDS: cetrizine 10 MG TABLET PO SCH (08:51)
[2023-04-20] MEDS: DUTASTERIDE (0.5 MG) 0.5 MG CAPSULE PO SCH (08:52)
[2023-04-20] MEDS: FOLIC ACID 1 MG TABLET PO SCH (08:52)
[2023-04-20] MEDS: ASPIRIN 81 MG TAB.CHEW PO SCH (08:52)
[2023-04-20] MEDS: CHOLECALCIFEROL 1,000 UNIT TABLET (VIT D3) PO SCH (08:52)
[2023-04-20] MEDS: FERROUS SULFATE (325 MG) 325 MG/TAB TABLET PO SCH ×3 (08:52→16:33)
[2023-04-20] MEDS: CLOPIDOGREL BISULFATE 75 MG TABLET PO SCH (08:52)
[2023-04-20] MEDS: MAGNESIUM OXIDE 400 MG TABLET PO SCH (08:53)
[2023-04-20] MEDS: LINAGLIPTIN 5 MG TABLET PO SCH (08:53)
[2023-04-20] MEDS: METFORMIN 500 MG TABLET PO SCH ×2 (08:53→16:33)
[2023-04-20] MEDS: BLOOD SUGAR DIAGNOSTIC 1 EACH STRIP IN SCH ×4 (09:00→21:54)
[2023-04-20] MEDS: FLUTICASONE PROPIONATE 16 GM BOTTLE NS SCH (09:07)
[2023-04-20] MEDS: BISACODYL (5 MG) 5 MG TABLET.DR PO PRN (09:51)
--- NOTE | 2023-04-20 10:00 | NUR ---
RETAIL SALES MERCHANDISER DEVELOPMENT NOTE DULCOLAX 5 MG PO GIVEN ORDERED
[2023-04-20 12:00] VITALS: BP 121/87; TEMP 98; O2SAT 97
--- NOTE | 2023-04-20 14:32 | NUR ---
MS RN NOTE SEEN BY DNP KB WILL F\U
[2023-04-20] MEDS: TAMSULOSIN 0.4 MG CAP.SR.24H PO SCH (17:09)
--- NOTE | 2023-04-20 17:14 | NUR ---
ms rn note rounds made turn reposition , all needs attended, not in distress
--- NOTE | 2023-04-20 18:00 | NUR ---
MS RN NOTE PATIENT IN BED, RESTING COMFORTABLY EATING DINNER , ABLE TO EAT SELF ,NO SOB NOTED, ON 2L NC,NO SOB NOTED, ALL NEEDS ATTENDED KEEP CLEAN DRY CALL LIGHT WITHIHN REACH
--- NOTE | 2023-04-20 18:40 | NUR ---
DIRECT RESPONSE CONSULTANT NOTE ROUNDS MADE NOTED PATIENT SITING ON FLOOR STATED THAT SLIPPED DOWN ON FLOOR WANTS TO USE URINAL , PLACED BACK TO BED BP 136/78 SATURATION 100% , ALSO STATED THAT FEELS DIZZY BUT DID NOT HURT HIS HEAD ,ABLE TO MOVE ALL UPPER AND LOWER EXTREMITIES, NO PAIN BUT C]O PAIN RT SHOULDER , CALLED TO AMADEO QUILES WITH ORDER RT SHOULDER XRAY AND NO CT HEAD AT THIS TIME AND MONITOR CLOSELY, BED ALARM IN PLACE BED IN LOWEST AND LOCKED POSITION , CALL LIGHT WITHIHN RYDER , INSTRUCTED PATIENT TO USE CALL [place] FOR HELP AT ANY TIME Addendum: 04/20/23 at 1933 by MICHELLE SANDHU RN called to sister renu notified that patient slipped downed on floor patient alert ,oriented
--- NOTE | 2023-04-20 19:50 | NUR ---
MS RN OPPENING NOTE RECEIVED PATIENT IN BED AWAKE A/OX2 AND CONFUSED ,ON ROOM AIR. NO SIGNS OF RESPIRATORY DISTRESS, TOLERATING WELL. LT UPPER ARM MID LINE IN PLACE INTACT, PATENT AND SECURED. PATENT SAFETY MEASURES IMPLEMENTED, BED IS LOCKED AND IN LOWEST POSITION, SIDE RAILS UPX2, CALL LIGHT WITHIN REACH. WILL CONT TO MONITOR.
[2023-04-20 20:00] VITALS: BP_SYST 120; BP_SYST 84; BP_DIAS 49; BP_DIAS 65; TEMP 98.2; O2SAT 92
[2023-04-20] MEDS ORDERED: IV NS 0.9% 1,000 ML IV ONE (21:30)
--- NOTE | 2023-04-20 21:38 | NUR ---
MS RN NOTE NOTED PT BP DROPPED TO 84/62 IN [place] AND RLL IS 120/[address] DREW INFORMED AND RECEIVED NEW ORDER OF NS 1L BOLUS TO BE GIVEN. ORDER NOTED AND CARRIED OUT. PT IN NO DISTRESS AT THIS TIME.
[2023-04-20] MEDS: ATORVASTATIN 10 MG TABLET PO SCH (21:56)
[2023-04-20] MEDS: clonazePAM 0.5 MG TABLET PO SCH (21:56)
[2023-04-20] MEDS: CLOZAPINE 100 MG TABLET PO SCH (21:56)
[2023-04-20] MEDS: GLIMEPIRIDE 1 MG TABLET PO SCH (21:56)
[2023-04-20 23:00] VITALS: BP_SYST 137; BP_SYST 142; BP_DIAS 63; BP_DIAS 73
--- NOTE | 2023-04-20 23:00 | NUR ---
RN NOTE REASSESS BP AFTER GIVEN 1L OF BOLUS N/S: LEFT LOWER LEG 137/63 HR 90 RIGHT FOREARM 142/73 HR 90 WILL CONTUINUE TO MONITOR
[2023-04-21 04:00] VITALS: BP 133/102; TEMP 98; O2SAT 94
--- NOTE | 2023-04-21 07:21 | NUR ---
MS RN CLOSING NOTE PATIENT IN BED SLEEPING A/OX2 AND CONFUSED ,ON ROOM AIR. NO SIGNS OF RESPIRATORY DISTRESS, TOLERATING WELL. LT UPPER ARM MID LINE IN PLACE INTACT, PATENT AND SECURED. PATENT SAFETY MEASURES IMPLEMENTED, BED IS LOCKED AND IN LOWEST POSITION, SIDE RAILS UPX2, CALL LIGHT WITHIN REACH. ALL DUE MEDS ARE GIVEN. ALL NEEDS ATTENDED. PT KEPT CLEAN AND DRY. WILL ENDORSE CARE TO AM SHIFT RN.
--- NOTE | 2023-04-21 07:30 | NUR ---
MS RN OPENING NOTE PATIENT RECEIVED IN BED SLEEPING. ON ROOM AIR, BREATHING EVEN AND UNLABORED WITH NO SIGNS OF RESPIRATORY DISTRESS. LT UPPER ARM MIDLINE SALINE LOCKED, INTACT AND PATENT. SAFETY MEASURES IMPLEMENTED WITH BED IN LOWEST LOCKED POSITION, SIDE RAILS UPX2, CALL LIGHT WITHIN REACH. WILL CONTINUE TO MONITOR.
[2023-04-21] MEDS: BLOOD SUGAR DIAGNOSTIC 1 EACH STRIP IN SCH ×4 (07:41→21:36)
[2023-04-21] MEDS: INSULIN REGULAR, HUMAN 100 UNIT/ML 3 ML VIAL SQ PRN ×4 (07:45→21:36)
[2023-04-21] MEDS: METFORMIN 500 MG TABLET PO SCH ×2 (08:55→17:28)
[2023-04-21] MEDS: CHOLECALCIFEROL 1,000 UNIT TABLET (VIT D3) PO SCH (08:55)
[2023-04-21] MEDS: FERROUS SULFATE (325 MG) 325 MG/TAB TABLET PO SCH ×3 (08:55→17:28)
[2023-04-21] MEDS: FOLIC ACID 1 MG TABLET PO SCH (08:55)
[2023-04-21] MEDS: ASPIRIN 81 MG TAB.CHEW PO SCH (08:55)
[2023-04-21] MEDS: FLUTICASONE PROPIONATE 16 GM BOTTLE NS SCH (08:55)
[2023-04-21] MEDS: MAGNESIUM OXIDE 400 MG TABLET PO SCH (08:56)
[2023-04-21] MEDS: LINAGLIPTIN 5 MG TABLET PO SCH (08:56)
[2023-04-21] MEDS: cetrizine 10 MG TABLET PO SCH (08:56)
[2023-04-21] MEDS: DUTASTERIDE (0.5 MG) 0.5 MG CAPSULE PO SCH (08:56)
[2023-04-21] MEDS: CLOPIDOGREL BISULFATE 75 MG TABLET PO SCH (08:56)
[2023-04-21] MEDS: MAGNESIUM HYDROXIDE 30 ML UDC PO PRN ×2 (14:06→21:13)
[2023-04-21 16:00] VITALS: BP 127/80; TEMP 98.8; O2SAT 99
[2023-04-21] MEDS: TAMSULOSIN 0.4 MG CAP.SR.24H PO SCH (17:28)
--- NOTE | 2023-04-21 18:44 | NUR ---
TRADES HELPER CLOSING NOTES: PATIENT IN BED ASLEEP, BUT EASILY AROUSES TO VOICE. PATINE IS ALERT, ORIENTED X 4. NO C/O PAIN OR DISCOMFORT NOTED. IV ACCESS ON LEFT UPPER ARM MIDLINE, INTACT, NO S/S INFILTRATION NOTED. ALL SAFETY MEASURES IMPLEMENTED, BED LOCKED AND IN LOWEST POSITION WITH BED ALARM ON. CALL LIGHT WITHIN REACH. ALL NEEDS MET AND ANTICIPATED. WILL ENDORSE TO INCOMING NURSE FOR CONTINUITY OF CARE.
--- NOTE | 2023-04-21 19:45 | NUR ---
MS RN OPENING NOTE PATIENT RECEIVED IN BED AWAKE. ON ROOM AIR, BREATHING EVEN AND UNLABORED WITH NO SIGNS OF RESPIRATORY DISTRESS. NO SOB. LT UPPER ARM MIDLINE SALINE LOCKED, INTACT AND PATENT. SAFETY MEASURES IMPLEMENTED WITH BED IN LOWEST LOCKED POSITION, SIDE RAILS UPX2, CALL LIGHT WITHIN REACH. WILL CONTINUE TO MONITOR.
[2023-04-21] MEDS: ATORVASTATIN 10 MG TABLET PO SCH (21:12)
[2023-04-21] MEDS: clonazePAM 0.5 MG TABLET PO SCH (21:12)
[2023-04-21] MEDS: CLOZAPINE 100 MG TABLET PO SCH (21:12)
[2023-04-21] MEDS: GLIMEPIRIDE 1 MG TABLET PO SCH (21:12)
[2023-04-22 04:00] VITALS: BP 128/73; TEMP 97.7; O2SAT 95
[2023-04-22 06:47] LABS: CALCIUM, SERUM 8.8 mg/dL (8.5-10.1); CREATININE 1.3 mg/dL (0.6-1.3)
--- NOTE | 2023-04-22 06:50 | NUR ---
MS RN CLOSING NOTE PATIENT IN BED SLEEPING A/OX2 AND CONFUSED ,ON ROOM AIR TOLERATING WELL. NO SIGNS OF RESPIRATORY DISTRESS, TOLERATING WELL. LT UPPER ARM MID LINE IN PLACE INTACT, PATENT AND SECURED. PATENT SAFETY MEASURES IMPLEMENTED, BED IS LOCKED AND IN LOWEST POSITION, BED ALARM IS ON, SIDE RAILS UP X2, CALL LIGHT WITHIN REACH. ALL DUE MEDS ARE GIVEN. ALL NEEDS ATTENDED. PT KEPT CLEAN AND DRY. WILL ENDORSE CARE TO AM SHIFT RN.
--- NOTE | 2023-04-22 07:23 | NUR ---
MS RN OPENING NOTE PATIENT RECEIVED IN BED ASLEEP. ON ROOM AIR, BREATHING EVEN AND UNLABORED WITH NO SIGNS OF RESPIRATORY DISTRESS. PHIL MID LINE IN PLACE INTACT, PATENT AND SECURED. PATENT SAFETY MEASURES IMPLEMENTED WITH BED IN LOWEST LOCKED POSITION, BED ALARM ON, SIDE RAILS UP X2, AND BEDSIDE TABLE AND CALL LIGHT WITHIN REACH. WILL CONTINUE TO MONITOR.
[2023-04-22] MEDS: BLOOD SUGAR DIAGNOSTIC 1 EACH STRIP IN SCH ×4 (07:53→21:17)
[2023-04-22 08:00] VITALS: BP 100/64; TEMP 98.1; O2SAT 94
[2023-04-22] MEDS: FLUTICASONE PROPIONATE 16 GM BOTTLE NS SCH (09:17)
[2023-04-22] MEDS: MAGNESIUM OXIDE 400 MG TABLET PO SCH (09:17)
[2023-04-22] MEDS: CHOLECALCIFEROL 1,000 UNIT TABLET (VIT D3) PO SCH (09:17)
[2023-04-22] MEDS: CLOPIDOGREL BISULFATE 75 MG TABLET PO SCH (09:17)
[2023-04-22] MEDS: DUTASTERIDE (0.5 MG) 0.5 MG CAPSULE PO SCH (09:17)
[2023-04-22] MEDS: ASPIRIN 81 MG TAB.CHEW PO SCH (09:17)
[2023-04-22] MEDS: cetrizine 10 MG TABLET PO SCH (09:18)
[2023-04-22] MEDS: LINAGLIPTIN 5 MG TABLET PO SCH (09:18)
[2023-04-22] MEDS: METFORMIN 500 MG TABLET PO SCH ×2 (09:18→17:24)
[2023-04-22] MEDS: FERROUS SULFATE (325 MG) 325 MG/TAB TABLET PO SCH ×3 (09:18→17:24)
[2023-04-22] MEDS: FOLIC ACID 1 MG TABLET PO SCH (09:18)
[2023-04-22] MEDS: MAGNESIUM HYDROXIDE 30 ML UDC PO PRN (10:24)
[2023-04-22] MEDS: INSULIN REGULAR, HUMAN 100 UNIT/ML 3 ML VIAL SQ PRN ×2 (12:04→17:35)
[2023-04-22 16:00] VITALS: BP 110/63; TEMP 98; O2SAT 94
[2023-04-22] MEDS: TAMSULOSIN 0.4 MG CAP.SR.24H PO SCH (17:24)
[2023-04-22] MEDS: GLIMEPIRIDE 1 MG TABLET PO SCH (21:10)
[2023-04-22] MEDS: clonazePAM 0.5 MG TABLET PO SCH (21:10)
[2023-04-22] MEDS: CLOZAPINE 100 MG TABLET PO SCH (21:10)
[2023-04-22] MEDS: ATORVASTATIN 10 MG TABLET PO SCH (21:11)
[2023-04-23] VITALS: BP 116/74; TEMP 97.3; O2SAT 96
--- NOTE | 2023-04-23 06:21 | NUR ---
MS WOOL GRADER CLOSING NOTE PATIENT IN BED ASLEEP. ON ROOM AIR SATING AT 94%, BREATHING EVEN AND UNLABORED WITH NO SIGNS OF RESPIRATORY DISTRESS. PHIL MID LINE IN PLACE INTACT, PATENT AND SECURED. ALL DUE MEDS GIVEN AND PATIENT KEPT CLEAN AND COMFORTABLE. PATIENT SAFETY MEASURES IMPLEMENTED WITH BED IN LOWEST LOCKED POSITION, BED ALARM ON, SIDE RAILS UP X2, AND BEDSIDE TABLE AND CALL LIGHT WITHIN REACH. WILL ENDORSE TO ONCOMING SHIFT FOR SARAH.
[2023-04-23] MEDS: BLOOD SUGAR DIAGNOSTIC 1 EACH STRIP IN SCH ×2 (07:44→12:12)
--- NOTE | 2023-04-23 07:55 | NUR ---
MS RN OPENING NOTE PATIENT SLEEPING IN BED, EASILY AROUSED BY VERBAL STIMULI.. ON ROOM AIR SATURATING WELL. BREATHING EVEN AND UNLABORED WITH NO SIGNS OF RESPIRATORY DISTRESS. NO IV ACCESS NOTED. WITH DC PLAN NOTED. SAFETY PRECAUTIONS MAINTAINED: CALL LIGHT AND TABLE WITHIN REACH, SIDE RAILS UP X 3, BED IN LOWEST LOCKED POSITION. WILL CONTINUE TO MONITOR.
[2023-04-23] MEDS: FOLIC ACID 1 MG TABLET PO SCH (09:40)
[2023-04-23] MEDS: METFORMIN 500 MG TABLET PO SCH (09:40)
[2023-04-23] MEDS: cetrizine 10 MG TABLET PO SCH (09:40)
[2023-04-23] MEDS: FERROUS SULFATE (325 MG) 325 MG/TAB TABLET PO SCH ×2 (09:40→12:12)
[2023-04-23] MEDS: CHOLECALCIFEROL 1,000 UNIT TABLET (VIT D3) PO SCH (09:40)
[2023-04-23] MEDS: DUTASTERIDE (0.5 MG) 0.5 MG CAPSULE PO SCH (09:40)
[2023-04-23] MEDS: CLOPIDOGREL BISULFATE 75 MG TABLET PO SCH (09:40)
[2023-04-23] MEDS: ASPIRIN 81 MG TAB.CHEW PO SCH (09:40)
[2023-04-23] MEDS: LINAGLIPTIN 5 MG TABLET PO SCH (09:40)
[2023-04-23] MEDS: MAGNESIUM OXIDE 400 MG TABLET PO SCH (09:41)
[2023-04-23] MEDS: FLUTICASONE PROPIONATE 16 GM BOTTLE NS SCH (09:42)
[2023-04-23 11:09] VITALS: BP 126/65; TEMP 98.1; O2SAT 100
--- NOTE | 2023-04-23 16:56 | NUR ---
patient refused discharge photo taken.
--- NOTE | 2023-04-23 17:57 | NUR ---
DISCHARGED NOTE PATIENT DISCHARGED TO HOME IN STABLE CONDITION, A/OX4. ON RA, SATURATING WELL. NOT IN ANY FORM OF DISTRESS. AMBULATORY WITH ASSIST, ABLE TO MAKE NEEDS KNOWN. IV ACCESS REMOVED, NO SWELLING OR BLEEDING NOTED. ALL DISCHARGED INSTRUCTIONS RELAYED TO PATIENT, VERBALIZED UNDERSTANDING. ALL BELONGINGS ACCOUNTED FOR THE PATIENT. PATIENT LEFT THE UNIT VIA WHEELCHAIR ACCOMPANIED BY INDIRECT FIRE INFANTRYMANJose LAWSONN AND . DISCHARGED.
== END 2023-04-23 17:50 | disposition home health service (06) | DRG 640 ==
LOC: ER 16:53 → TELE1 21:03 → TELE-TD 23:30 → MEDSG1 04-12 14:30
PROVIDERS: ADMIT Student in an Organized Health Care Education/Training Program; ATTEND Nurse Practitioner Acute Care
PROC: 05H633Z Insertion of Infusion Device into Left Subclavian Vein, Percutaneous Approach (ICD-10-PCS; 2023-04-10)
PROC: B547ZZA Ultrasonography of Left Subclavian Vein, Guidance (ICD-10-PCS; 2023-04-10)
PROC: 05H633Z Insertion of Infusion Device into Left Subclavian Vein, Percutaneous Approach (ICD-10-PCS; principal; 2023-04-23)
PROC: B547ZZA Ultrasonography of Left Subclavian Vein, Guidance (ICD-10-PCS; 2023-04-23)
DX: E86.0 Dehydration (principal); N17.0 Acute kidney failure with tubular necrosis; F20.0 Paranoid schizophrenia; J98.11 Atelectasis; E87.20 Acidosis, unspecified; I95.9 Hypotension, unspecified; W18.30XA Fall on same level, unspecified, initial encounter; Y92.009 Unspecified place in unspecified non-institutional (private) residence as the place of occurrence of the external cause; I25.10 Atherosclerotic heart disease of native coronary artery without angina pectoris; R53.1 Weakness; D72.829 Elevated white blood cell count, unspecified; D64.9 Anemia, unspecified; E11.9 Type 2 diabetes mellitus without complications; E66.9 Obesity, unspecified; I10 Essential (primary) hypertension; J45.909 Unspecified asthma, uncomplicated; Z86.73 Personal history of transient ischemic attack (TIA), and cerebral infarction without residual deficits; Z87.891 Personal history of nicotine dependence; F41.9 Anxiety disorder, unspecified; Z68.33 Body mass index [BMI] 33.0-33.9, adult; Z85.51 Personal history of malignant neoplasm of bladder; R29.6 Repeated falls; K59.00 Constipation, unspecified; Z79.84 Long term (current) use of oral hypoglycemic drugs
CPT/HCPCS: 36410; 36415; 71045-TC; 73030-TC; 80048-TC; 80076-TC; 81001; 82962-TC; 83605-TC; 83735-TC; 84100-TC; 84484-TC; 85025-TC; 85730-TC; 87040-TC; 87086-TC; 97112-TC; 97116-TC; 97530-TC; 97535-TC; A4223; A4349; G0378; J0696; J1815; J7030; J7060